=== PATIENT | male | born 1950 | race Caucasian/White ===

== ENCOUNTER 2018-02-15 17:06 | Inpatient (IN) ==
--- NOTE | 2018-02-15 17:21 | ED ---
HPI General Chief complaint: Weakness Stated complaint: General Weakness Time Seen by Provider: 02/15/18 17:10 Source: patient Mode of arrival: ambulatory Limitations: no limitations History of Present Illness HPI Narrative: progressive LLE weakness which yesterday caused him to fall and hit the right forehead area on a mehran furniture,...per patient unable to support his weight on his LLE MD Complaint: Reports focal weakness Onset (ago): day(s) (2) Duration: progressively worsening Location: Reports LLE Migration: Reports none Severity: moderate (now unable to bear weight and ambulate) Relieving factors: none Exacerbating factors: none Associated symptoms: Reports denies other symptoms Related Data Home Medications Medication Instructions Recorded Confirmed aripiprazole 5 mg PO DAILY 01/28/18 02/15/18 duloxetine 60 mg PO DAILY 01/28/18 02/15/18 fenofibrate nanocrystallized 48 mg PO DAILY 01/28/18 02/15/18 finasteride 5 mg PO DAILY 01/28/18 02/15/18 montelukast 10 mg PO QPM 01/28/18 02/15/18 nebivolol [Bystolic] 10 mg PO DAILY 01/28/18 02/15/18 omeprazole 20 mg PO DAILY 01/28/18 02/15/18 ramipril 10 mg PO DAILY 01/28/18 02/15/18 tamsulosin 0.4 mg PO DAILY 01/28/18 02/15/18 Previous Rx's Medication Instructions Recorded amlodipine [Norvasc] 5 mg PO DAILY #30 tab 02/18/18 apixaban [Eliquis] 5 mg PO BID #60 tab 02/18/18 atorvastatin [Lipitor] 10 mg PO DAILY #30 tab 02/18/18 Allergies Allergy/AdvReac Type Severity Reaction Status Date / Time penicillin G Allergy Severe Hives Verified 02/15/18 22:43 Review of Systems ROS: all other systems reviewed are negative PMFSH History History Provided By: Patient Medical History Medical History Decreased renal function (Acute) Depression (Acute) Elevated cholesterol (Acute) GERD (gastroesophageal reflux disease) (Acute) Hydronephrosis (Acute) Hypertension (Acute) Surgical History Surgical History History of prostate surgery (Acute) Hx of transurethral resection of prostate (Acute) Social History Social History Substance History: No History of Abuse Second Hand Smoke Exposure: Yes Smoking Status: Current every day smoker Tobacco Type: Cigarettes How Often Do You Have a Drink Containing Alcohol: 4 or more times a week ( Advised to limit alcohol intake to 2 drinks per week. ) Recent Travel in [facility] within the Last 8 Weeks: No Recent Out of Country Travel within the Last 8 Weeks: No Exam Narrative Exam Narrative: GENERAL: Well-nourished, well-developed patient in no apparent distress. SKIN: Warm and dry. HEAD: Atraumatic. Normocephalic. EYES: Pupils equal and round. No scleral icterus. No injection or drainage. ENT: No nasal bleeding or discharge. Mucous membranes pink and moist. NECK: Trachea midline. No JVD. CARDIOVASCULAR: Regular rate and rhythm. no rubs or gallops RESPIRATORY: No accessory muscle use. Clear to auscultation. Breath sounds equal bilaterally. GASTROINTESTINAL: Abdomen soft, non-tender, nondistended. No rebound or guarding MUSCULOSKELETAL: Extremities without clubbing, cyanosis, or edema. No obvious deformities. NEUROLOGICAL: Awake and alert. No obvious cranial nerve deficits. Motor grossly within normal limits. Five out of 5 muscle strength in the arms and legs on right, 4/5 on lle. Normal speech. PSYCHIATRIC: Appropriate mood and affect; insight and judgment normal. Course Initial Documented Vital Signs Pulse Rate 66 02/15/18 17:20 Respiratory Rate 20 02/15/18 17:20 Blood Pressure 165/92 H 02/15/18 17:20 Pulse Oximetry 95 02/15/18 17:20 Last Documented Vital Signs Temperature 98.7 F 02/18/18 08:00 Pulse Rate 58 L 02/18/18 08:00 Respiratory Rate 16 02/18/18 08:00 Blood Pressure 155/77 H 02/18/18 14:35 Pulse Oximetry 98 02/18/18 08:00 Medical Decision Making MDM Narrative Medical decision making narrative: CBC shows no leukocytosis no anemia no left shift Total CPK 333 CK-MB and troponin negative as well as beta natruretic peptide within normal limits TSH screening normal Electrolytes and normal liver functions Creatinine 1.48, gfr 47 renal insufficiency based on review his chronic with a September 2002 creatinine of 2.1, October 2002 1.8 patient needs further evaluation r/o cva to cause his LLE weakness.... Medical Screen Exam Complete: Yes Emergency Medical Condition: Yes Differential Diagnosis Differential Diagnosis: TIA versus CVA versus intracranial hemorrhage versus electrolyte abnormalities Medical Records Medical records reviewed: Yes I reviewed the patient's medical records. Lab Data Result diagrams: 02/16/18 05:10 02/16/18 05:10 Lab Results 02/15/18 02/15/18 02/15/18 Range/Units 17:27 17:27 17:27 WBC 9.3 (4.0-11.0) th/mm3 RBC 4.83 (4.50-5.90) mil/mm3 Hgb 16.0 (13.0-17.0) gm/dL Hct 44.3 (39.0-51.0) % MCV 91.7 (80.0-100.0) fL MCH 33.2 (27.0-34.0) pg MCHC 36.2 H (32.0-36.0) % RDW 12.4 (11.6-17.2) % Plt Count 227 (150-450) th/mm3 MPV 8.4 (7.0-11.0) fL Prelim Diff (Auto) Slide review pending Neut % (Auto) 65.3 (16.0-70.0) % Lymph % (Auto) 21.9 (9.0-44.0) % [place] % (Auto) 9.7 H (0.0-8.0) % Eos % (Auto) 2.3 (0.0-4.0) % Baso % (Auto) 0.8 (0.0-2.0) % Neut # (Auto) 6.1 (1.8-7.7) th/mm3 Lymph # (Auto) 2.0 (1.0-4.8) th/mm3 [place] # (Auto) 0.9 (0.0-0.9) th/mm3 Eos # (Auto) 0.2 (0.0-0.4) th/mm3 Baso # (Auto) 0.1 (0.0-0.2) th/mm3 WBC Differential . Diff Scan Auto diff confirmed Differential Comment . Sodium 140 (136-145) meq/L Potassium (3.5-5.1) meq/L Chloride 105 (98-107) meq/L Carbon Dioxide 25.7 (21.0-32.0) meq/L Anion Gap 9 (5-15) meq/L BUN 19 H (7-18) mg/dL Creatinine 1.48 H (0.60-1.30) mg/dL Estimated GFR 47 L (>89) mL/min Random Glucose 105 (74-106) mg/dL Hemoglobin A1c (4.3-6.0) % Calcium 8.2 L (8.5-10.1) mg/dL Total Bilirubin 0.3 (0.2-1.0) mg/dL AST 36 (15-37) U/L ALT 47 (12-78) U/L Alkaline Phosphatase 70 (45-117) U/L Total Creatine Kinase 333 H (39-308) U/L CK-MB (CK-2) 2.6 (0.5-3.6) ng/mL CK-MB (CK-2) % 0.8 (0.0-4.0) % Troponin I Less than 0.02 L (0.02-0.05) ng/mL B-Natriuretic Peptide 12 (0-100) pg/mL Total Protein 7.1 (6.4-8.2) g/dL Albumin 3.6 (3.4-5.0) g/dL Triglycerides (42-150) mg/dL Cholesterol (120-200) mg/dL LDL Cholesterol, Calc (0-99) mg/dL HDL Cholesterol (40.0-60.0) mg/dL Cholesterol/HDL Ratio Ratio TSH 2.210 (0.358-3.740) uIU/mL Urine Color (Yellw/Straw) Urine Clarity (Clear) Urine pH (5.0-8.5) Ur Specific [place] (1.002-1.035) Urine Protein (Neg-Trace) mg/dL Urine Glucose (UA) (Negative) mg/dL Urine Ketones (Negative) mg/dL Urine Occult Blood (Negative) Urine Nitrate (Negative) Urine Bilirubin (Negative) Urine Urobilinogen (Less than 2) mg/dL Ur Leukocyte Esterase (Negative) Ur Squamous Epith Cells (0-5) /hpf Urine Mucus (Occasional) /lpf Micro UA Comment Ur Microscopic Review Urine Culture Comments 02/15/18 02/16/18 02/16/18 Range/Units 21:45 05:10 05:10 WBC 7.8 (4.0-11.0) th/mm3 RBC 4.77 (4.50-5.90) mil/mm3 Hgb 15.5 (13.0-17.0) gm/dL Hct 43.4 (39.0-51.0) % MCV 91.2 (80.0-100.0) fL MCH 32.6 (27.0-34.0) pg MCHC 35.7 (32.0-36.0) % RDW 12.4 (11.6-17.2) % Plt Count 196 (150-450) th/mm3 MPV 8.7 (7.0-11.0) fL Prelim Diff (Auto) Neut % (Auto) 62.5 (16.0-70.0) % Lymph % (Auto) 23.4 (9.0-44.0) % [place] % (Auto) 9.2 H (0.0-8.0) % Eos % (Auto) 4.0 (0.0-4.0) % Baso % (Auto) 0.9 (0.0-2.0) % Neut # (Auto) 4.9 (1.8-7.7) th/mm3 Lymph # (Auto) 1.8 (1.0-4.8) th/mm3 [place] # (Auto) 0.7 (0.0-0.9) th/mm3 Eos # (Auto) 0.3 (0.0-0.4) th/mm3 Baso # (Auto) 0.1 (0.0-0.2) th/mm3 WBC Differential . Diff Scan Differential Comment Auto diff final Sodium 142 (136-145) meq/L Potassium 4.0 (3.5-5.1) meq/L Chloride 105 (98-107) meq/L Carbon Dioxide 26.8 (21.0-32.0) meq/L Anion Gap 10 (5-15) meq/L BUN 16 (7-18) mg/dL Creatinine 1.33 H (0.60-1.30) mg/dL Estimated GFR 53 L (>89) mL/min Random Glucose 90 (74-106) mg/dL Hemoglobin A1c (4.3-6.0) % Calcium 8.6 (8.5-10.1) mg/dL Total Bilirubin (0.2-1.0) mg/dL AST (15-37) U/L ALT (12-78) U/L Alkaline Phosphatase (45-117) U/L Total Creatine Kinase (39-308) U/L CK-MB (CK-2) (0.5-3.6) ng/mL CK-MB (CK-2) % (0.0-4.0) % Troponin I (0.02-0.05) ng/mL B-Natriuretic Peptide (0-100) pg/mL Total Protein (6.4-8.2) g/dL Albumin (3.4-5.0) g/dL Triglycerides 650 H (42-150) mg/dL Cholesterol 217 H (120-200) mg/dL LDL Cholesterol, Calc (0-99) mg/dL HDL Cholesterol 26.9 L (40.0-60.0) mg/dL Cholesterol/HDL Ratio 8.06 Ratio TSH (0.358-3.740) uIU/mL Urine Color Yellow (Yellw/Straw) Urine Clarity Clear (Clear) Urine pH 6.0 (5.0-8.5) Ur Specific [place] 1.008 (1.002-1.035) Urine Protein Negative (Neg-Trace) mg/dL Urine Glucose (UA) Negative (Negative) mg/dL Urine Ketones Negative (Negative) mg/dL Urine Occult Blood Negative (Negative) Urine Nitrate Negative (Negative) Urine Bilirubin Negative (Negative) Urine Urobilinogen Less than 2 (Less than 2) mg/dL Ur Leukocyte Esterase Negative (Negative) Ur Squamous Epith Cells <1 (0-5) /hpf Urine Mucus Few H (Occasional) /lpf Micro UA Comment Culture not ind Ur Microscopic Review Not Reportable Urine Culture Comments Culture not ind 02/16/18 Range/Units 05:10 WBC (4.0-11.0) th/mm3 RBC (4.50-5.90) mil/mm3 Hgb (13.0-17.0) gm/dL Hct (39.0-51.0) % MCV (80.0-100.0) fL MCH (27.0-34.0) pg MCHC (32.0-36.0) % RDW (11.6-17.2) % Plt Count (150-450) th/mm3 MPV (7.0-11.0) fL Prelim Diff (Auto) Neut % (Auto) (16.0-70.0) % Lymph % (Auto) (9.0-44.0) % [place] % (Auto) (0.0-8.0) % Eos % (Auto) (0.0-4.0) % Baso % (Auto) (0.0-2.0) % Neut # (Auto) (1.8-7.7) th/mm3 Lymph # (Auto) (1.0-4.8) th/mm3 [place] # (Auto) (0.0-0.9) th/mm3 Eos # (Auto) (0.0-0.4) th/mm3 Baso # (Auto) (0.0-0.2) th/mm3 WBC Differential Diff Scan Differential Comment Sodium (136-145) meq/L Potassium (3.5-5.1) meq/L Chloride (98-107) meq/L Carbon Dioxide (21.0-32.0) meq/L Anion Gap (5-15) meq/L BUN (7-18) mg/dL Creatinine (0.60-1.30) mg/dL Estimated GFR (>89) mL/min Random Glucose (74-106) mg/dL Hemoglobin A1c 5.5 (4.3-6.0) % Calcium (8.5-10.1) mg/dL Total Bilirubin (0.2-1.0) mg/dL AST (15-37) U/L ALT (12-78) U/L Alkaline Phosphatase (45-117) U/L Total Creatine Kinase (39-308) U/L CK-MB (CK-2) (0.5-3.6) ng/mL CK-MB (CK-2) % (0.0-4.0) % Troponin I (0.02-0.05) ng/mL B-Natriuretic Peptide (0-100) pg/mL Total Protein (6.4-8.2) g/dL Albumin (3.4-5.0) g/dL Triglycerides (42-150) mg/dL Cholesterol (120-200) mg/dL LDL Cholesterol, Calc (0-99) mg/dL HDL Cholesterol (40.0-60.0) mg/dL Cholesterol/HDL Ratio Ratio TSH (0.358-3.740) uIU/mL Urine Color (Yellw/Straw) Urine Clarity (Clear) Urine pH (5.0-8.5) Ur Specific [place] (1.002-1.035) Urine Protein (Neg-Trace) mg/dL Urine Glucose (UA) (Negative) mg/dL Urine Ketones (Negative) mg/dL Urine Occult Blood (Negative) Urine Nitrate (Negative) Urine Bilirubin (Negative) Urine Urobilinogen (Less than 2) mg/dL Ur Leukocyte Esterase (Negative) Ur Squamous Epith Cells (0-5) /hpf Urine Mucus (Occasional) /lpf Micro UA Comment Ur Microscopic Review Urine Culture Comments Imaging Data Radiologist's impression: Head CT 02/15/18 17:17 CONCLUSION: 1. No acute abnormality is seen. 2. Suspected small vessel ischemic change in the white matter. . Carotid Doppler Study 02/16/18 00:00 CONCLUSION: 1. No hemodynamically significant stenosis in either carotid artery. 2. Nonvisualization right vertebral artery. 3. Head MRI 02/16/18 00:00 CONCLUSION: 1. Areas of restricted diffusion within the right medial temporal lobe, right basal ganglia, right parietal lobe and left frontal lobe consistent with acute/ subacute punctate infarcts. 2. No midline shift or mass effect. Head MRA 02/16/18 07:03 CONCLUSION: 1. Negative MRA Cow ([place]) non contrast. Discharge Plan Discharge Disposition Patient Disposition: 30 Still Patient Discharge Condition Condition: Stable Discharge Order Discharge Orders: Discharge Order (Routine); Ordered 02/18/18 Ordered By: Taylor Burger Cardiology Clear for Discharge (Routine); Ordered 02/18/18 Ordered By: Cedric Tong Discharge Details Diagnosis: Weakness Physicians Team ED Provider: Emmett Laughlin Primary Care Provider: Anamaria Guerra Attending Provider: Suni Mack Other Providers: Fady Dimas ; Sherin Valdez ; Cedric Tong Status ED Status: Left Department Discharge Information Discharge Date/Time: 02/15/18 22:31
[2018-02-15 17:44] LABS: Baso # (Auto) 0.1 th/mm3 (0.0-0.2); Baso % (Auto) 0.8 % (0.0-2.0); Eos # (Auto) 0.2 th/mm3 (0.0-0.4); Eos % (Auto) 2.3 % (0.0-4.0); Hematocrit 44.3 % (39.0-51.0); Lymph % (Auto) 21.9 % (9.0-44.0); Mean Corpuscular HGB Conc 36.2 % (32.0-36.0); Mean Corpuscular Hemoglobin 33.2 pg (27.0-34.0); Mean Corpuscular Volume 91.7 fL (80.0-100.0); Mean Platelet Volume 8.4 fL (7.0-11.0); Mono # (Auto) 0.9 th/mm3 (0.0-0.9); Mono % (Auto) 9.7 % (0.0-8.0); Neut # (Auto) 6.1 th/mm3 (1.8-7.7); Neut % (Auto) 65.3 % (16.0-70.0); Platelet Count 227 th/mm3 (150-450); Red Blood Count 4.83 mil/mm3 (4.50-5.90); Red Cell Distribution Width 12.4 % (11.6-17.2); White Blood Count 9.3 th/mm3 (4.0-11.0)
[2018-02-15 18:06] LABS: Alanine Aminotransferase 47 U/L (12-78); Albumin 3.6 g/dL (3.4-5.0); Anion Gap 9 meq/L (5-15); Aspartate Aminotransferase 36 U/L (15-37); Blood Urea Nitrogen 19 mg/dL (7-18); Calcium 8.2 mg/dL (8.5-10.1); Carbon Dioxide 25.7 meq/L (21.0-32.0); Chloride 105 meq/L (98-107); Glomerular Filtration Rate 47 mL/min (>89); Glucose,Random 105 mg/dL (74-106); Sodium 140 meq/L (136-145)
[2018-02-15 18:12] LABS: Alkaline Phosphatase 70 U/L (45-117); Creatine Kinase 333 U/L (39-308); Total Protein 7.1 g/dL (6.4-8.2)
--- NOTE | 2018-02-15 18:17 | CT ---
EXAM DATE: 02/15/2018 5:29 PM EDT AGE/SEX: 67 years / Male INDICATIONS: Left leg weakness trouble standing falls CLINICAL DATA: This is the patient's initial encounter. Patient reports that signs and symptoms have been present for 1 day and indicates a pain score of 1/10. MEDICAL/SURGICAL HISTORY: Transient ischemic attack. Decrease renal function . Prostate surgery RADIATION DOSE: 56.35 CTDI (mGy) COMPARISON: No prior exams available for comparison. TECHNIQUE: CT of the head without contrast. Using automated exposure control and adjustment of the mA and/or kV according to patient size, radiation dose was kept as low as reasonably achievable to ob tain optimal diagnostic quality images. DICOM format image data is available electronically for revi ew and comparison. FINDINGS: Cerebrum: The ventricles are normal for age. No evidence of midline shift, mass lesion, hemorrhage or acute infarction. There is decreased density in the cerebral white matter. There is a possible ol d small lacunar infarct at the posterior right basal ganglia. No extraaxial fluid collections are see n. Posterior Fossa: The cerebellum and brainstem are intact. The 4th ventricle is midline. The cerebe llopontine angle is unremarkable. Extracranial: The visualized portion of the orbits is intact. Skull: The calvaria is intact. No evidence of skull fracture. CONCLUSION: 1. No acute abnormality is seen. 2. Suspected small vessel ischemic change in the white matter. . Electronically signed by: Ck Harvey MD 02/15/2018 6:16 PM EDT
[2018-02-15 18:38] LABS: CKMB Percent 0.8 % (0.0-4.0); Creatine Kinase MB 2.6 ng/mL (0.5-3.6)
[2018-02-15 22:10] LABS: Bilirubin,Urine Negative (Negative); Clarity,Urine Clear (Clear); Color,Urine Yellow (Yellw/Straw); Glucose,Urine (UA) Negative (Negative); Leukocyte Esterase,Urine Negative (Negative); Mucus,Urine Few /lpf (Occasional); Nitrite,Urine Negative (Negative); Specific Gravity,Urine 1.008 (1.002-1.035); Squamous Epithelial Cell,Urine <1 /hpf (0-5)
[2018-02-15] MEDS ORDERED: Aspirin 325 MG Tablet PO ONE (22:35)
--- NOTE | 2018-02-15 22:42 | P.HPIM ---
History of Present Illness Service: [facility] Primary Care Physician: Anamaria Guerra MD Chief Complaint: Left lower extremitiy weakness History of Present Illness: 67-year-old male with a history of hypertension, hyperlipidemia, GERD, BPH, and depression presented to the ED with complaints of left lower extremity weakness and unsteady gait. Patient states for the last month he has been having weakness in his lower extremities intermittently and today he tried to get up from the bed and almost nearly fell, and has been had increasing difficulty using his walker. He did have an outpatient MRI completed last week that showed multiple tiny areas of ischemia and is due to follow-up with a neurologist at the end of the month and scheduled for a carotid ultrasound next week, but due to increasing extremity weakness patient's felt she could not wait to be evaluated because he seems to be getting worse. Patient denies any numbness or tingling in lower extremities, no calf pain, no dizziness, no headache, no chest pain, no shortness of breath. Review of Systems All other systems reviewed negative except as stated in HPI [facility] - History History Provided By: Patient - Medical History Medical History: Medical History (Last Reviewed 02/15/18 @ 23:26 by DAISY Mace) Decreased renal function Depression Elevated cholesterol GERD (gastroesophageal reflux disease) Hydronephrosis Hypertension - Surgical History Surgical History: Surgical History (Last Reviewed 02/15/18 @ 23:26 by DAISY Mace) History of prostate surgery Hx of transurethral resection of prostate - Family History Family History: Family History (Last Reviewed 02/15/18 @ 23:26 by DAISY Mace) Other Hypertension - Social History I have reviewed the patient's Social History: Yes - Tobacco History Tobacco Use In Past 30 Days: Yes Smoking Status: Current every day smoker Tobacco Type: Cigarettes - Alcohol History How Often Do You Have a Drink Containing Alcohol: Unable to Obtain - Substance Use History Substance History: No History of Abuse - Immunization History Tetanus Immunization: Unsure Medications and Allergies Active Medications: Active Medications Aripiprazole (Abilify) 5 mg PO DAILY MAGALYS Aspirin (Aspirin) 325 mg PO ONCE ONE Stop: 02/15/18 22:36 Aspirin (Aspirin) 325 mg PO DAILY MAGALYS Duloxetine HCl (Cymbalta) 60 mg PO DAILY MAGALYS Enalaprilat (Vasotec Inj) 1.25 mg IV.PUSH Q4H PRN PRN Reason: For SBP > 220 or DBP > 120 Fenofibrate (Tricor) 48 mg PO DAILY MAGALYS Finasteride (Proscar) 5 mg PO DAILY MAGAL[facility] Montelukast Sodium (Singulair) 10 mg PO QPM MAGAL[facility] Nebivolol (Bystolic) 10 mg PO DAILY [facility] Non-Formulary Medication (Omeprazole [Omeprazole]) 20 mg PO DAILY [facility] Non-Formulary Medication (Ramipril [Ramipril]) 10 mg PO DAILY [facility] Ondansetron HCl (Zofran Inj) 4 mg IV.PUSH Q6H PRN PRN Reason: NAUSEA OR VOMITING Sodium Chloride (Ns Flush) 2 ml IV.FLUSH PRN PRN PRN Reason: FLUSH AFTER USING IV ACCESS Tamsulosin HCl (Flomax) 0.4 mg PO DAILY MAGALYS Allergies Allergy/AdvReac Type Severity Reaction Status Date / Time penicillin G Allergy Severe Hives Verified 02/15/18 22:43 Home Medications Medication Instructions Recorded Confirmed Type aripiprazole 5 mg PO DAILY 01/28/18 02/15/18 History duloxetine 60 mg PO DAILY 01/28/18 02/15/18 History fenofibrate nanocrystallized 48 mg PO DAILY 01/28/18 02/15/18 History finasteride 5 mg PO DAILY 01/28/18 02/15/18 History montelukast 10 mg PO QPM 01/28/18 02/15/18 History nebivolol [Bystolic] 10 mg PO DAILY 01/28/18 02/15/18 History omeprazole 20 mg PO DAILY 01/28/18 02/15/18 History ramipril 10 mg PO DAILY 01/28/18 02/15/18 History tamsulosin 0.4 mg PO DAILY 01/28/18 02/15/18 History Exam Vital signs: Vital Signs 02/15/18 17:20 02/15/18 17:36 02/15/18 18:54 Pulse Rate 66 69 76 Respiratory Rate 20 18 Blood Pressure 165/92 H 165/90 H Pulse Oximetry 95 93 L Intake & Output 02/15/18 02/15/18 02/16/18 06:59 18:59 06:59 Weight 97.069 kg Narrative: GENERAL: This is a well-nourished, well-developed patient, in no apparent distress. SKIN: Warm, dry, intact, no ecchymosis or open lesions EYES: Pupils equal round and reactive, no scleral edema or drainage CARDIOVASCULAR: Regular rate and rhythm without murmurs, gallops, or rubs. RESPIRATORY: Clear to auscultation. Breath sounds equal bilaterally. No wheezes , rales, or rhonchi. GASTROINTESTINAL: Abdomen soft, non-tender, nondistended. Normal active bowel sounds MUSCULOSKELETAL: Extremities without clubbing, cyanosis, or edema. NEURO: Alert & Oriented x4 to person, place, time, situation. Moves all ext x4 , left lower extremity weaker than right, no lower extremity drift no tongue deviation, no facial droop Results - Labs CBC & Chem 7: 02/15/18 17:27 02/15/18 17:27 Labs: Short CBC 02/15/18 Range/Units 17:27 WBC 9.3 (4.0-11.0) th/mm3 Hgb 16.0 (13.0-17.0) gm/dL Hct 44.3 (39.0-51.0) % Plt Count 227 (150-450) th/mm3 BMP 02/15/18 17:27 Sodium 140 Potassium Chloride 105 Carbon Dioxide 25.7 BUN 19 H Creatinine 1.48 H Calcium 8.2 L Cardiac Enzymes 02/15/18 Range/Units 17:27 Total Creatine Kinase 333 H (39-308) U/L CK-MB (CK-2) 2.6 (0.5-3.6) ng/mL Troponin I Less than 0.02 L (0.02-0.05) ng/mL Liver Function 02/15/18 Range/Units 17:27 Total Bilirubin 0.3 (0.2-1.0) mg/dL AST 36 (15-37) U/L ALT 47 (12-78) U/L Alkaline Phosphatase 70 (45-117) U/L Albumin 3.6 (3.4-5.0) g/dL Urine 02/15/18 Range/Units 21:45 Urine Color Yellow (Yellw/Straw) Urine Clarity Clear (Clear) Urine pH 6.0 (5.0-8.5) Ur Specific [place] 1.008 (1.002-1.035) Urine Protein Negative (Neg-Trace) mg/dL Urine Glucose (UA) Negative (Negative) mg/dL - Imaging Impressions Head CT 02/15/18 17:17 CONCLUSION: 1. No acute abnormality is seen. 2. Suspected small vessel ischemic change in the white matter. . Caprini VTE Risk Assessment Caprini VTE Risk Assessment: Moderate/High Risk (score >= 2) Caprini Risk Assessment Model: Point Value = 1 Point Value = 2 Point Value = 3 Point Value = 5 Age 41-60 Minor surgery BMI > 25 kg/m2 Swollen legs Varicose veins or History of unexplained or recurrent spontaneous Oral contraceptives or hormone replacement Sepsis (< 1 month) Serious lung disease, including pneumonia (< 1 month) Abnormal pulmonary function Acute myocardial infarction Congestive heart failure (< 1 month) History of inflammatory bowel disease Medical patient at bed rest Age 61-74 Arthroscopic surgery Major open surgery (> 45 min) Laparoscopic surgery (> 45 min) Malignancy Confined to bed (> 72 hours) Immobilizing plaster cast Central venous access Age >= 75 History of VTE Family history of VTE Factor V Leiden Prothrombin [id number] Lupus anticoagulant Anticardiolipin antibodies Elevated serum homocysteine Heparin-induced thrombocytopenia Other congenital or acquired thrombophilia Stroke (< 1 month) Elective arthroplasty Hip, pelvis, or leg fracture Acute spinal cord injury (< 1 month) Prophylaxis Regimen: Total Risk Factor Score Risk Level Prophylaxis Regimen 0-1 Low Early ambulation 2 Moderate Order ONE of the following: *Sequential Compression Device (SCD) *Heparin 5000 units SQ BID 3-4 Higher Order ONE of the following medications: *Heparin 5000 units SQ TID *Enoxaparin/Lovenox 40 mg SQ daily (WT < 150 kg, CrCl > 30 mL/min) *Enoxaparin/Lovenox 30 mg SQ daily (WT < 150 kg, CrCl > 10-29 mL/min) *Enoxaparin/Lovenox 30 mg SQ BID (WT < 150 kg, CrCl > 30 mL/min) AND/OR *Sequential Compression Device (SCD) 5 or more Highest Order ONE of the following medications: *Heparin 5000 units SQ TID (Preferred with Epidurals) *Enoxaparin/Lovenox 40 mg SQ daily (WT < 150 kg, CrCl > 30 mL/min) *Enoxaparin/Lovenox 30 mg SQ daily (WT < 150 kg, CrCl > 10-29 mL/min) *Enoxaparin/Lovenox 30 mg SQ BID (WT < 150 kg, CrCl > 30 mL/min) AND *Sequential Compression Device (SCD) Assessment and Plan - Plan 67-year-old male with a history of hypertension, hyperlipidemia, GERD, BPH, and depression presented to the ED with complaints of left lower extremity weakness and unsteady gait. Left lower extremity weakness, likely related to TIA, questionable CVA Head CT reviewed and shows no acute abnormalities, suspected small vessel ischemic changes Patient states outpatient MRI showed multiple tiny ischemic strokes Repeat MRI/MRA Carotid ultrasound and 2D echo ordered Consult neurology for evaluation Aspirin 325 mg p.o. daily PT/OT Hypertension, chronic Resume home medications, monitor vitals Hyperlipidemia, chronic Lipid panel ordered Resume home medications Depression, chronic Resume home medications DVT prophylaxis: SCDs Discussed Condition With: Patient, patient's and RN
[2018-02-16 06:21] LABS: Baso # (Auto) 0.1 th/mm3 (0.0-0.2); Baso % (Auto) 0.9 % (0.0-2.0); Eos # (Auto) 0.3 th/mm3 (0.0-0.4); Hematocrit 43.4 % (39.0-51.0); Hemoglobin 15.5 gm/dL (13.0-17.0); Lymph # (Auto) 1.8 th/mm3 (1.0-4.8); Lymph % (Auto) 23.4 % (9.0-44.0); Mean Corpuscular HGB Conc 35.7 % (32.0-36.0); Mean Corpuscular Hemoglobin 32.6 pg (27.0-34.0); Mean Corpuscular Volume 91.2 fL (80.0-100.0); Mean Platelet Volume 8.7 fL (7.0-11.0); Mono # (Auto) 0.7 th/mm3 (0.0-0.9); Mono % (Auto) 9.2 % (0.0-8.0); Neut # (Auto) 4.9 th/mm3 (1.8-7.7); Neut % (Auto) 62.5 % (16.0-70.0); Platelet Count 196 th/mm3 (150-450); Red Blood Count 4.77 mil/mm3 (4.50-5.90); Red Cell Distribution Width 12.4 % (11.6-17.2); White Blood Count 7.8 th/mm3 (4.0-11.0)
[2018-02-16 06:54] LABS: Calcium 8.6 mg/dL (8.5-10.1); Carbon Dioxide 26.8 meq/L (21.0-32.0)
[2018-02-16 06:55] LABS: Chol/HDL Ratio 8.06 Ratio; HDL Cholesterol 26.9 mg/dL (40.0-60.0)
[2018-02-16] MEDS ORDERED: Aspirin 325 MG Tablet PO SCH (09:00)
--- NOTE | 2018-02-16 09:26 | MR ---
EXAM DATE: 02/16/2018 8:52 AM EDT AGE/SEX: 67 years / Male INDICATIONS: Left sided weakness. CVA. CLINICAL DATA: This is the patient's subsequent encounter. Patient reports that signs and symptoms h ave been present for 2 days and indicates a pain score of 0/10. MEDICAL/SURGICAL HISTORY: Hypertension. . TURP. COMPARISON: [facility] [place], MR HEAD W/O CONTRAST, 02/16/2018. . TECHNIQUE: 3D [id number] MRA was performed. Source images, multiplanar STS MIP, and 3D volum e MIP reconstructions were reviewed. FINDINGS: There is excellent visualization of the major intracranial arteries out to the second-order branch ve ssels. Variant anatomy seen with persistent circulation noted bilaterally. This results in a r elatively small caliber basilar artery. There is no evidence for aneurysm, vessel truncation or steno sis, and no evidence for vascular malformation. CONCLUSION: 1. Negative MRA Cow ([place] [facility] [place]) non contrast. Electronically signed by: Jair Dee MD 02/16/2018 9:25 AM EDT
--- NOTE | 2018-02-16 09:29 | MR ---
EXAM DATE: 02/16/2018 8:52 AM EDT AGE/SEX: 67 years / Male INDICATIONS: Left sided weakness. CVA. CLINICAL DATA: This is the patient's subsequent encounter. Patient reports that signs and symptoms h ave been present for 2 days and indicates a pain score of 0/10. MEDICAL/SURGICAL HISTORY: Hypertension. . TURP. COMPARISON: POI, MR BRAIN W/O CONTRAST, 02/11/2018. . TECHNIQUE: Multiplanar, multisequence examination of the brain was performed without contrast. FINDINGS: Cerebrum: Scattered foci of bright T2 signal abnormalities are seen bilaterally including the right basal ganglia, right parietal lobe, left anterior frontal lobe and right medial temporal lobe.. The v entricles are normal for age. No evidence of midline shift, mass lesion or hemorrhage . No extraaxi al fluid collections are seen. The pituitary gland and suprasellar cistern are normal in configurati on. White Matter: Scattered foci of bright T2 signal abnormalities are seen in the white matter. Posterior Fossa: The cerebellum and brainstem are intact. The 4th ventricle is midline. The cerebel lopontine angle is unremarkable. The cerebellar tonsils are normal in position. Diffusion Imaging: No focal areas of restricted diffusion are seen. No evidence of acute infarction . Extracranial: The visualized portions of the orbits and paranasal sinuses are unremarkable. CONCLUSION: 1. Areas of restricted diffusion within the right medial temporal lobe, right basal ganglia, right p arietal lobe and left frontal lobe consistent with acute/subacute punctate infarcts. 2. No midline shift or mass effect. Electronically signed by: Bora Owen MD 02/16/2018 9:28 AM EDT
--- NOTE | 2018-02-16 10:08 | ECG ---
Date Performed: 02/15/2018 Time Performed: 18:26:33 PTAGE: 67 years EKG: Sinus rhythm NONSPECIFIC T-WAVE ABNORMALITY BORDERLINE ECG INTERPRETATION BASED ON A DEFAULT AGE OF 40 YEARS NO PREVIOUS TRACING DOCTOR: Iglesia Jose Interpretating Date/Time 02/16/2018 10:06:39
--- NOTE | 2018-02-16 10:08 | US ---
EXAM DATE: 02/16/2018 12:00 AM EDT AGE/SEX: 67 years / Male INDICATIONS: Weakness and unsteady gait. CLINICAL DATA: This is the patient's initial encounter. Patient reports that signs and symptoms have been present for 1 day and indicates a pain score of 0/10. MEDICAL/SURGICAL HISTORY: Gastroesophageal reflux disease. Hypertension. Hypercholesterolemia . Decreased renal function. Hydronephrosis. . Prostate surgery. COMPARISON: No prior exams available for comparison. VELOCITY PARAMETERS: ICA/CCA Ratio: Right 0.7 , Left 0.9 ICA: Right 118 cm/sec, Left 90 cm/sec CCA: Right 81 cm/sec, Left 78 cm/sec ECA: Right 109 cm/sec, Left 106 cm/sec Vertebral: Right .not visualized. cm/sec absent, Left 38 cm/sec antegrade FINDINGS: Right Carotid: No significant plaque is visualized.The waveforms are within normal limits. Left Carotid: No significant plaque is visualized. The waveforms are within normal limits. Other: None. CONCLUSION: 1. No hemodynamically significant stenosis in either carotid artery. 2. Nonvisualization right vertebral artery. 3. Electronically signed by: Bora Owen MD 02/16/2018 10:07 AM EDT
[2018-02-16] MEDS: Ramipril 5 MG Capsule PO SCH (10:14)
[2018-02-16] MEDS: Finasteride 5 MG Tablet PO SCH (10:14)
[2018-02-16] MEDS: Pantoprazole Sodium 20 MG DR Tablet PO SCH (10:14)
[2018-02-16] MEDS: Duloxetine 60 MG DR Capsule PO SCH (10:14)
[2018-02-16] MEDS: Fenofibrate 48 MG Tablet PO SCH (10:15)
[2018-02-16] MEDS: ARIPiprazole 5 MG Tablet PO SCH (10:15)
--- NOTE | 2018-02-16 14:47 | P.PN ---
Subjective Interval history: Patient is seen lying in bed finishing breakfast. His is at bedside. Patient tells me that he has had no new episodes of weakness. No dizziness or syncope. No chest pain or shortness of breath. No nausea vomiting or diarrhea. He continues to have weakness in his left foot however he feels it is not that significant. Reports that the foot "flops"; patient does not appear to perceive the weakness as being as bad as it is and thinks that he is able to walk without assistance. Physical Exam Vital signs: Vital Signs 02/15/18 17:20 02/15/18 17:36 02/15/18 18:54 Temperature Pulse Rate 66 69 76 Respiratory Rate 20 18 Blood Pressure 165/92 H 165/90 H Pulse Oximetry 95 93 L 02/16/18 00:00 02/16/18 01:09 02/16/18 04:15 Temperature 96.9 F L Pulse Rate 63 61 Respiratory Rate 18 Blood Pressure 160/72 H 172/85 H Pulse Oximetry 99 02/16/18 04:47 02/16/18 07:28 02/16/18 08:00 Temperature 97.8 F 97.7 F 98.6 F Pulse Rate 63 72 63 Respiratory Rate 18 18 18 Blood Pressure 174/81 H 198/99 H Pulse Oximetry 99 97 98 02/16/18 08:49 02/16/18 12:00 02/16/18 12:09 Temperature 98.7 F Pulse Rate 77 Respiratory Rate 18 Blood Pressure 174/94 H 198/102 H 180/96 H Pulse Oximetry 96 02/16/18 12:10 Temperature Pulse Rate Respiratory Rate Blood Pressure 178/102 H Pulse Oximetry Intake & Output 02/15/18 02/16/18 02/16/18 18:59 06:59 18:59 Intake Total 240 / 240 Balance 240 / 240 Weight 97.069 kg 97.069 kg Intake: Oral 240 / 240 Other: # Voids 1 Date of Last Bowel Movement 02/15/18 Weight On Admission 97.069 kg Narrative: GENERAL: This is a well-nourished, well-developed patient, in no apparent distress. SKIN: Warm, dry, intact, no ecchymosis or open lesions visible EYES: Pupils equal round and reactive, no scleral edema or drainage CARDIOVASCULAR: Regular rate and rhythm without murmurs, gallops, or rubs. RESPIRATORY: Clear to auscultation. Breath sounds equal bilaterally. No wheezes , rales, or rhonchi. GASTROINTESTINAL: Abdomen soft, non-tender, nondistended. Normal active bowel sounds MUSCULOSKELETAL: Extremities without clubbing, cyanosis, or edema. NEURO: Alert & Oriented x4 to person, place, time, situation. Moves all ext x4 , left lower extremity weaker than right, no lower extremity drift no tongue deviation, no facial droop Results - Labs CBC & Chem 7: 02/16/18 05:10 02/16/18 05:10 Laboratory Results - last 24 hr 02/15/18 02/15/18 02/15/18 17:27 17:27 17:27 WBC 9.3 RBC 4.83 Hgb 16.0 Hct 44.3 MCV 91.7 MCH 33.2 MCHC 36.2 H RDW 12.4 Plt Count 227 MPV 8.4 Prelim Diff (Auto) Slide review pending Neut % (Auto) 65.3 Lymph % (Auto) 21.9 Izard % (Auto) 9.7 H Eos % (Auto) 2.3 Baso % (Auto) 0.8 Neut # (Auto) 6.1 Lymph # (Auto) 2.0 [place] # (Auto) 0.9 Eos # (Auto) 0.2 Baso # (Auto) 0.1 WBC Differential . Diff Scan Auto diff confirmed Differential Comment . Sodium 140 Potassium Chloride 105 Carbon Dioxide 25.7 Anion Gap 9 BUN 19 H Creatinine 1.48 H Estimated GFR 47 L Random Glucose 105 Calcium 8.2 L Total Bilirubin 0.3 AST 36 ALT 47 Alkaline Phosphatase 70 Total Creatine Kinase 333 H CK-MB (CK-2) 2.6 CK-MB (CK-2) % 0.8 Troponin I Less than 0.02 L B-Natriuretic Peptide 12 Total Protein 7.1 Albumin 3.6 Triglycerides Cholesterol LDL Cholesterol, Calc HDL Cholesterol Cholesterol/HDL Ratio TSH 2.210 Urine Color Urine Clarity Urine pH Ur Specific [place] Urine Protein Urine Glucose (UA) Urine Ketones Urine Occult Blood Urine Nitrate Urine Bilirubin Urine Urobilinogen Ur Leukocyte Esterase Ur Squamous Epith Cells Urine Mucus Micro UA Comment Ur Microscopic Review Urine Culture Comments 02/15/18 02/16/18 02/16/18 21:45 05:10 05:10 WBC 7.8 RBC 4.77 Hgb 15.5 Hct 43.4 MCV 91.2 MCH 32.6 MCHC 35.7 RDW 12.4 Plt Count 196 MPV 8.7 Prelim Diff (Auto) Neut % (Auto) 62.5 Lymph % (Auto) 23.4 [place] % (Auto) 9.2 H Eos % (Auto) 4.0 Baso % (Auto) 0.9 Neut # (Auto) 4.9 Lymph # (Auto) 1.8 [place] # (Auto) 0.7 Eos # (Auto) 0.3 Baso # (Auto) 0.1 WBC Differential . Diff Scan Differential Comment Auto diff final Sodium 142 Potassium 4.0 Chloride 105 Carbon Dioxide 26.8 Anion Gap 10 BUN 16 Creatinine 1.33 H Estimated GFR 53 L Random Glucose 90 Calcium 8.6 Total Bilirubin AST ALT Alkaline Phosphatase Total Creatine Kinase CK-MB (CK-2) CK-MB (CK-2) % Troponin I B-Natriuretic Peptide Total Protein Albumin Triglycerides 650 H Cholesterol 217 H LDL Cholesterol, Calc HDL Cholesterol 26.9 L Cholesterol/HDL Ratio 8.06 TSH Urine Color Yellow Urine Clarity Clear Urine pH 6.0 Ur Specific [place] 1.008 Urine Protein Negative Urine Glucose (UA) Negative Urine Ketones Negative Urine Occult Blood Negative Urine Nitrate Negative Urine Bilirubin Negative Urine Urobilinogen Less than 2 Ur Leukocyte Esterase Negative Ur Squamous Epith Cells <1 Urine Mucus Few H Micro UA Comment Culture not ind Ur Microscopic Review Not Reportable Urine Culture Comments Culture not ind - Imaging Impressions Head CT 02/15/18 17:17 CONCLUSION: 1. No acute abnormality is seen. 2. Suspected small vessel ischemic change in the white matter. . Carotid Doppler Study 02/16/18 00:00 CONCLUSION: 1. No hemodynamically significant stenosis in either carotid artery. 2. Nonvisualization right vertebral artery. 3. Head MRI 02/16/18 00:00 CONCLUSION: 1. Areas of restricted diffusion within the right medial temporal lobe, right basal ganglia, right parietal lobe and left frontal lobe consistent with acute/ subacute punctate infarcts. 2. No midline shift or mass effect. Head MRA 02/16/18 07:03 CONCLUSION: 1. Negative MRA Cow ([place]) non contrast. Assessment and Plan - Plan 67-year-old male with a history of hypertension, hyperlipidemia, GERD, BPH, and depression presented to the ED with complaints of left lower extremity weakness and unsteady gait. Left lower extremity weakness, likely related to TIA, questionable CVA Head CT reviewed and shows no acute abnormalities, suspected small vessel ischemic changes Patient states outpatient MRI showed multiple tiny ischemic strokes Repeat MRI/MRA Carotid ultrasound and 2D echo ordered Consult neurology for evaluation Aspirin 325 mg p.o. daily PT/OT Hypertension, chronic Resume home medications, monitor vitals We will allow permissive hypertension until neuro evaluation complete. 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
[2018-02-16 16:58] LABS: Hemoglobin A1c 5.5 % (4.3-6.0)
--- NOTE | 2018-02-16 17:49 | MB ---
cc: Fady Dimas MD, PhD DATE: 02/16/2018 REASON FOR CONSULTATION: Stroke. HISTORY OF PRESENT ILLNESS: Mr. Bateman is a 67-year-old man who 3 weeks ago was doing some back-twisting exercises and suddenly developed difficulty walking with weakness in the left leg and unsteady gait. As an outpatient, he had an MRI of the brain, which revealed several strokes. He came to the ER for further evaluation. He has had no other history of stroke in the past. PAST MEDICAL HISTORY: Remarkable for GERD, hyperlipidemia, hypertension, BPH, depression, decreased renal function, prostate surgery, TURP. MEDICATIONS AT HOME: 1. Aspirin 81 mg daily. 2. Abilify. 3. Duloxetine. 4. Enalapril. 5. Fenofibrate. 6. Finasteride. 7. Montelukast. 8. Bystolic. NEUROLOGICAL EXAMINATION: Blood pressure is 174/94, pulse is 77, respirations 18, temperature 98.2 degrees. Higher cortical functions normal. Cranial nerves 2-12 are within normal limits. On motor exam, he has 5/5 strength in all major groups in both upper extremities. He has some decreased strength in the left leg distally. There is slightly diminished fine motor skills in the left arm with a drift. Reflexes are symmetric. IMAGING STUDIES: MRI of the brain shows restricted diffusion, right medial temporal lobe, right basal ganglia and right parietal lobe and left frontal lobe consistent with acute/subacute punctate infarctions. No hemorrhage is identified. Carotid ultrasound: No significant carotid stenosis identified. MRA brain is within normal limits. LABORATORY DATA: White count 9300, hemoglobin 16, hematocrit 44%, platelets 227,000. Sodium is 140, potassium 4, chloride 105, CO2 of 26, BUN is 19, creatinine 1.48, GFR is 47, glucose 105, calcium 8.2, AST 36, ALT 47. Triglycerides 650. Cholesterol 217, LDL pending. IMPRESSION: The patient has evidence of several strokes bilaterally, mainly on the right side, but also a small left frontal stroke, which raises the possibility of cardioembolic stroke. RECOMMENDATIONS: Continue monitoring cardiac telemetry, rule out atrial fibrillation. We will also check an echocardiogram. Recommend starting Lovenox. Consider long-term anticoagulation. He may need outpatient loop recorder to rule out atrial fibrillation. Fady Dimas MD, PhD EDUARDO/joanne , 05:29 PM , 05:35 PM
--- NOTE | 2018-02-16 19:03 | ECHRPT ---
Indication: CONCLUSIONS The left ventricular systolic function is normal with an estimated ejection fraction in the range of 60-65%. Mild concentric left ventricular hypertrophy. Doppler parameters are consistent with impaired left ventricular relaxtion (grade 1 diastolic dysfun ction). There is trace tricuspid valve regurgitation. BP: / HR: Rhythm: MEASUREMENTS (Male / Female) Normal Values Technical Quality:Fair 2D ECHO LV Diastolic Diameter PLAX 4.5 cm 4.2 - 5.9 / 3.9 - 5.3 cm LV Systolic Diameter PLAX 3.1 cm IVS Diastolic Thickness 1.4 cm 0.6 - 1.0 / 0.6 - 0.9 cm LVPW Diastolic Thickness 1.1 cm 0.6 - 1.0 / 0.6 - 0.9 cm LV Relative Wall Thickness 0.6 RV Internal Dim ED PLAX 3.1 cm LVOT Diameter 2.3 cm Aortic Root Diameter 3.2 cm LA Systolic Diameter LX 4.0 cm 3.0 - 4.0 / 2.7 - 3.8 cm DOPPLER AV Peak Velocity 144.5 cm/s AV Peak Gradient 8.4 mmHg AV Mean Gradient 3.5 mmHg AV Velocity Time Integral 30.0 cm LVOT Peak Velocity 104.0 cm/s LVOT Peak Gradient 4.3 mmHg LVOT Velocity Time Integral 24.1 cm AV Area Cont Eq vti 3.3 cm AV Area Cont Eq pk 3.0 cm Mitral E Point Velocity 57.8 cm/s Mitral A Point Velocity 90.3 cm/s Mitral E to A Ratio 0.6 LV E' Lateral Velocity 6.4 cm/s Mitral E to LV E' Lateral Ratio 9.0 LV E' Septal Velocity 5.2 cm/s Mitral E to LV E' Septal Ratio 11.2 PV Peak Velocity 113.0 cm/s PV Peak Gradient 5.1 mmHg FINDINGS LEFT VENTRICLE Normal left ventricular size. Mild concentric left ventricular hypertrophy. The left ventricular systolic function is normal with an estimated ejection fraction in the range of 60-65%. Doppler parameters are consistent with impaired left ventricular relaxtion (grade 1 diastolic dysfun ction). RIGHT VENTRICLE Normal right ventricular size and systolic function. LEFT ATRIUM The left atrial size is mildly dilated. RIGHT ATRIUM The right atrial size is normal. ATRIAL SEPTUM Normal atrial septal thickness without atrial level shunting by limited color doppler interrogation. AORTA The aortic root and proximal ascending aorta are normal in size on limited imaging. MITRAL VALVE Structurally normal mitral valve. No mitral valve stenosis or regurgitation. AORTIC VALVE Trileaflet aortic valve. No aortic valve stenosis or regurgitation. TRICUSPID VALVE Structurally normal tricuspid valve. There is trace tricuspid valve regurgitation. PULMONARY VALVE Trivial pulmonary valve regurgitation. The pulmonary valve is not well visualized. VESSELS The inferior vena cava is normal in size. PERICARDIUM No pericardial effusion. Pradeep Ceballos DO (Electronically Signed) Final Date:16 February 2018 19:03
[2018-02-16] MEDS: Montelukast 10 MG Tablet PO SCH (19:11)
[2018-02-16] MEDS: Enoxaparin Inj 100 MG/ML Syringe SQ SCH (20:31)
[2018-02-17] MEDS: Enoxaparin Inj 100 MG/ML Syringe SQ SCH ×2 (08:44→20:06)
[2018-02-17] MEDS: Pantoprazole Sodium 20 MG DR Tablet PO SCH (08:45)
[2018-02-17] MEDS: ARIPiprazole 5 MG Tablet PO SCH (08:45)
[2018-02-17] MEDS: Fenofibrate 48 MG Tablet PO SCH (08:45)
[2018-02-17] MEDS: Ramipril 5 MG Capsule PO SCH (08:46)
[2018-02-17] MEDS: Finasteride 5 MG Tablet PO SCH (08:46)
[2018-02-17] MEDS: Duloxetine 60 MG DR Capsule PO SCH (08:47)
--- NOTE | 2018-02-17 13:53 | P.PN ---
Subjective Interval history: Patient is seen lying in bed. His is present at bedside. He reports that he is doing much better and is now unable to walk without assistance. He wishes to return home and do outpatient physical therapy if possible. Patient denies any chest pain or shortness of breath. No dizziness or syncope. No palpitations. He denies any history of cardiac problems or dysrhythmias. Physical Exam Vital signs: Vital Signs 02/16/18 16:00 02/16/18 20:00 02/16/18 23:23 Temperature 98.4 F 98.2 F 97.9 F Pulse Rate 70 60 62 Respiratory Rate 18 20 20 Blood Pressure 191/102 H 181/85 H 183/91 H Pulse Oximetry 97 96 98 02/17/18 04:00 02/17/18 05:11 02/17/18 07:38 Temperature 97.7 F 98.2 F 98.9 F Pulse Rate 48 L 75 62 Respiratory Rate 17 19 18 Blood Pressure 194/95 H 126/66 198/97 H Pulse Oximetry 98 98 99 02/17/18 12:12 Temperature 97.9 F Pulse Rate 60 Respiratory Rate 20 Blood Pressure 181/86 H Pulse Oximetry 99 Intake & Output 02/16/18 02/17/18 02/17/18 18:59 06:59 18:59 Other: Date of Last Bowel Movement 02/15/18 02/15/18 02/15/18 Narrative: GENERAL: This is a well-nourished, well-developed patient, in no apparent distress. SKIN: Warm, dry, intact, no ecchymosis or open lesions visible EYES: Pupils equal round and reactive, no scleral edema or drainage CARDIOVASCULAR: Regular rate and rhythm without murmurs, gallops, or rubs. RESPIRATORY: Clear to auscultation. Breath sounds equal bilaterally. No wheezes , rales, or rhonchi. GASTROINTESTINAL: Abdomen soft, non-tender, nondistended. Normal active bowel sounds MUSCULOSKELETAL: Extremities without clubbing, cyanosis, or edema. NEURO: Alert & Oriented x4 to person, place, time, situation. Moves all ext x4 , left lower extremity weaker than right, no lower extremity drift no tongue deviation, no facial droop Results - Labs CBC & Chem 7: 02/16/18 05:10 02/16/18 05:10 Laboratory Results - last 24 hr 02/16/18 05:10 Hemoglobin A1c 5.5 Assessment and Plan - Plan 67-year-old male with a history of hypertension, hyperlipidemia, GERD, BPH, and depression presented to the ED with complaints of left lower extremity weakness and unsteady gait. Left lower extremity weakness, likely related to TIA, questionable CVA Head CT reviewed and shows no acute abnormalities, suspected small vessel ischemic changes Patient states outpatient MRI showed multiple tiny ischemic strokes Consult neurology for evaluation -neurology feels this is cardioembolic in nature Consult to cardiology -planned placement of loop recorder and BUDDY on 02/18. Stopped aspirin. Started Lovenox. Consider anticoagulation upon discharge PT/OT Hypertension, chronic Resume home medications, monitor vitals We will allow permissive hypertension until neuro evaluation complete. Hyperlipidemia, chronic Lipid panel ordered Resume home medications Depression, chronic Resume home medications DVT prophylaxis: SCDs Discussed Condition With: Patient, patient's and heliotherapist planning: Home with outpatient PT
--- NOTE | 2018-02-17 14:40 | P.CONCA ---
History of Present Illness Service: Cardiology Reason for Consult: CVA Primary Care Provider: Anamaria Guerra MD Chief Complaint: Left lower extremitiy weakness History of Present Illness: Pleasant 67-year-old male who was scheduled to see us as a new patient next week presented with left lower extremity weakness. Patient reports that symptoms initially began approximately 3 weeks ago after working out at the gym , he felt like his left foot just would not work. He reports going to his masseuse for a week, originally thought maybe he had messed up his back however symptoms did not improve. He ended up going to the ER in [place] on January 28. Patient reports that this past week on Wednesday left leg and left foot became more weak he had a hard time controlling his foot, reports he was needing assistance with walking. Prior to 3 weeks ago patient denies any significant past medical history, he works out at the gym regularly with no difficulty. He denies any chest pain shortness of breath dizziness or lightheadedness. He does have a history of hypertension and hyperlipidemia. MRI revealed Areas of restricted diffusion within the right medial temporal lobe, right basal ganglia, right parietal lobe and left frontal lobe consistent with acute/subacute punctate infarcts. Dr. Dimas is following patient. No known history of atrial fibrillation. Carotid ultrasound done during this admission, no evidence of significant stenosis. Telemetry does not reveal any atrial fibrillation. All options discussed in detail with patient and , we will plan to proceed with loop recorder placement and transesophageal echocardiogram tomorrow. Review of Systems Musculoskeletal: Reports abnormal walking, Reports muscle weakness, Reports numbness Neurologic: Reports localized weakness PMFSH - History History Provided By: Patient - Medical History Medical History: Medical History (Last Reviewed 02/17/18 @ 09:27 by Murray Burrell) Decreased renal function Depression Elevated cholesterol GERD (gastroesophageal reflux disease) Hydronephrosis Hypertension - Surgical History Surgical History: Surgical History (Last Reviewed 02/17/18 @ 09:27 by Murray Burrell) History of prostate surgery Hx of transurethral resection of prostate - Family History Family History: Family History (Last Reviewed 02/16/18 @ 06:54 by Felipa Mejia) Other Hypertension - Social History I have reviewed the patient's Social History: Yes - Tobacco History Second Hand Smoke Exposure: Yes Tobacco Use In Past 30 Days: Yes Smoking Status: Current every day smoker Tobacco Type: Cigarettes - Alcohol History How Often Do You Have a Drink Containing Alcohol: 4 or more times a week ( Advised to limit alcohol intake to 2 drinks per week.) - Substance Use History Substance History: No History of Abuse - Travel History Recent Travel in the [place] Within the Last 8 Weeks: No Recent Travel Out of the Country Within the Last 8 Weeks: No - Immunization History Tetanus Immunization: >5 Years Hx Influenza Vaccine This Season: Yes Medications and Allergies Allergies Allergy/AdvReac Type Severity Reaction Status Date / Time penicillin G Allergy Severe Hives Verified 02/15/18 22:43 Home Medications Medication Instructions Recorded Confirmed Type aripiprazole 5 mg PO DAILY 01/28/18 02/15/18 History duloxetine 60 mg PO DAILY 01/28/18 02/15/18 History fenofibrate nanocrystallized 48 mg PO DAILY 01/28/18 02/15/18 History finasteride 5 mg PO DAILY 01/28/18 02/15/18 History montelukast 10 mg PO QPM 01/28/18 02/15/18 History nebivolol [Bystolic] 10 mg PO DAILY 01/28/18 02/15/18 History omeprazole 20 mg PO DAILY 01/28/18 02/15/18 History ramipril 10 mg PO DAILY 01/28/18 02/15/18 History tamsulosin 0.4 mg PO DAILY 01/28/18 02/15/18 History Active Medications: Active Medications Aripiprazole (Abilify) 5 mg PO DAILY [facility] Last Admin: 02/17/18 08:45 Dose: 5 mg Atorvastatin Calcium (Lipitor) 10 mg PO DAILY [facility] Last Admin: 02/17/18 08:46 Dose: 10 mg Clonidine HCl (Catapres) 0.1 mg PO Q6H PRN PRN Reason: SBP>180, DBP>95 Duloxetine HCl (Cymbalta) 60 mg PO DAILY [facility] Last Admin: 02/17/18 08:47 Dose: 60 mg Enalaprilat (Vasotec Inj) 1.25 mg IV.PUSH Q4H PRN PRN Reason: For SBP > 220 or DBP > 120 Enoxaparin Sodium (Lovenox Inj) 90 mg SQ Q12HR [facility] Last Admin: 02/17/18 08:44 Dose: 90 mg Fenofibrate (Tricor) 48 mg PO DAILY [facility] Last Admin: 02/17/18 08:45 Dose: 48 mg Finasteride (Proscar) 5 mg PO DAILY [facility] Last Admin: 02/17/18 08:46 Dose: 5 mg Montelukast Sodium (Singulair) 10 mg PO QPM [facility] Last Admin: 02/16/18 19:11 Dose: 10 mg Nebivolol (Bystolic) 10 mg PO DAILY [facility] Last Admin: 02/17/18 08:45 Dose: 10 mg Ondansetron HCl (Zofran Inj) 4 mg IV.PUSH Q6H PRN PRN Reason: NAUSEA OR VOMITING Pantoprazole Sodium (Protonix) 20 mg PO DAILY [facility] Last Admin: 02/17/18 08:45 Dose: 20 mg Ramipril (Altace) 10 mg PO DAILY [facility] Last Admin: 02/17/18 08:46 Dose: 10 mg Sodium Chloride (Ns Flush) 2 ml IV.FLUSH PRN PRN PRN Reason: FLUSH AFTER USING IV ACCESS Tamsulosin HCl (Flomax) 0.4 mg PO DAILY [facility] Last Admin: 02/17/18 08:46 Dose: 0.4 mg Temazepam (Restoril) 7.5 mg PO HS PRN PRN Reason: INSOMNIA Last Admin: 02/16/18 22:53 Dose: 7.5 mg Exam Vital signs: Vital Signs 02/16/18 16:00 02/16/18 20:00 02/16/18 23:23 Temperature 98.4 F 98.2 F 97.9 F Pulse Rate 70 60 62 Respiratory Rate 18 20 20 Blood Pressure 191/102 H 181/85 H 183/91 H Pulse Oximetry 97 96 98 02/17/18 04:00 02/17/18 05:11 02/17/18 07:38 Temperature 97.7 F 98.2 F 98.9 F Pulse Rate 48 L 75 62 Respiratory Rate 17 19 18 Blood Pressure 194/95 H 126/66 198/97 H Pulse Oximetry 98 98 99 02/17/18 12:12 Temperature 97.9 F Pulse Rate 60 Respiratory Rate 20 Blood Pressure 181/86 H Pulse Oximetry 99 Intake & Output 02/16/18 02/17/18 02/17/18 18:59 06:59 18:59 Other: Date of Last Bowel Movement 02/15/18 02/15/18 02/15/18 - Constitutional no acute distress - Routine HEENT Exam Head: Present: normocephalic, atraumatic Eye: Present: PERRL, normal accommodation ENT: Present: mucous membranes moist - Routine Neck Exam Present: supple - Routine Respiratory Exam Present: CTA bilaterally - Routine Cardiovascular Exam Present: RRR - Routine Abdominal Exam Present: soft - Routine Skin Exam Present: intact - Routine Neurological Exam Present: alert, oriented X3 Results 02/16/18 05:10 02/16/18 05:10 Cardiac Enzymes 02/15/18 02/15/18 Range/Units 17:27 17:27 AST 36 (15-37) U/L CK-MB (CK-2) 2.6 (0.5-3.6) ng/mL Troponin I Less than 0.02 L (0.02-0.05) ng/mL B-Natriuretic Peptide 12 (0-100) pg/mL Coagulation 02/15/18 Range/Units 17:27 B-Natriuretic Peptide 12 (0-100) pg/mL Lipids 02/16/18 Range/Units 05:10 Triglycerides 650 H (42-150) mg/dL Cholesterol 217 H (120-200) mg/dL HDL Cholesterol 26.9 L (40.0-60.0) mg/dL Cholesterol/HDL Ratio 8.06 Ratio CBC 02/15/18 02/16/18 Range/Units 17:27 05:10 WBC 9.3 7.8 (4.0-11.0) th/mm3 RBC 4.83 4.77 (4.50-5.90) mil/mm3 Hgb 16.0 15.5 (13.0-17.0) gm/dL Hct 44.3 43.4 (39.0-51.0) % Plt Count 227 196 (150-450) th/mm3 Neut # (Auto) 6.1 4.9 (1.8-7.7) th/mm3 Lymph # (Auto) 2.0 1.8 (1.0-4.8) th/mm3 [place] # (Auto) 0.9 0.7 (0.0-0.9) th/mm3 Eos # (Auto) 0.2 0.3 (0.0-0.4) th/mm3 Baso # (Auto) 0.1 0.1 (0.0-0.2) th/mm3 Comprehensive Metabolic Panel 02/15/18 02/16/18 Range/Units 17:27 05:10 Sodium 140 142 (136-145) meq/L Potassium 4.0 (3.5-5.1) meq/L Chloride 105 105 (98-107) meq/L Carbon Dioxide 25.7 26.8 (21.0-32.0) meq/L BUN 19 H 16 (7-18) mg/dL Creatinine 1.48 H 1.33 H (0.60-1.30) mg/dL Calcium 8.2 L 8.6 (8.5-10.1) mg/dL AST 36 (15-37) U/L ALT 47 (12-78) U/L Alkaline Phosphatase 70 (45-117) U/L Total Protein 7.1 (6.4-8.2) g/dL Albumin 3.6 (3.4-5.0) g/dL Intake and Output 02/16/18 02/17/18 02/17/18 22:59 06:59 14:59 Other: Date of Last Bowel Movement 02/15/18 02/15/18 - Imaging and Cardiology Imaging: Impressions Head CT 02/15/18 17:17 CONCLUSION: 1. No acute abnormality is seen. 2. Suspected small vessel ischemic change in the white matter. . Carotid Doppler Study 02/16/18 00:00 CONCLUSION: 1. No hemodynamically significant stenosis in either carotid artery. 2. Nonvisualization right vertebral artery. 3. Head MRI 02/16/18 00:00 CONCLUSION: 1. Areas of restricted diffusion within the right medial temporal lobe, right basal ganglia, right parietal lobe and left frontal lobe consistent with acute/ subacute punctate infarcts. 2. No midline shift or mass effect. Head MRA 02/16/18 07:03 CONCLUSION: 1. Negative MRA [place] ([place] [facility] [place]) non contrast. Assessment and Plan - Plan Assessment CVA HTN Hyperlipidemia MRI results from 02/16/2018-Areas of restricted diffusion within the right medial temporal lobe, right basal ganglia, right parietal lobe and left frontal lobe consistent with acute/subacute punctate infarcts. Plan -We will plan to proceed with transesophageal echocardiogram with anesthesia to rule out PFO, and loop recorder placement to monitor for atrial fibrillation tomorrow. All risk reviewed with patient and in detail including the risk of infection bleeding aspiration, etc. Patient and understand the risk, and has elected to proceed. -Pt is currently on Lovenox, will need anticoagulation upon discharge. Will defer to neurology. -Will allow permissive hypertension per neurology recommendations. -On atorvastatin The patient was seen and evaluated by Dr. Tong who participated in care management and decision making. The exam, history, and the medical decision-making described in the above note were completed with the assistance of the mid-level provider. I reviewed and agree with the findings presented. I attest that I had a [id number] encounter with the patient on the same day, and personally performed and documented my assessment and findings in the medical record. will proceed with BUDDY and loop, risks reviewed Code Status: Full Code Discussed Condition With: and RN
[2018-02-17] MEDS: Montelukast 10 MG Tablet PO SCH (18:02)
--- NOTE | 2018-02-17 18:56 | P.PNNEU ---
Subjective Subjective Comments: no new c/o. He feels left leg strength is improving Active Medications: Active Medications Aripiprazole (Abilify) 5 mg PO DAILY [facility] Last Admin: 02/17/18 08:45 Dose: 5 mg Atorvastatin Calcium (Lipitor) 10 mg PO DAILY [facility] Last Admin: 02/17/18 08:46 Dose: 10 mg Clonidine HCl (Catapres) 0.1 mg PO Q6H PRN PRN Reason: SBP>180, DBP>95 Duloxetine HCl (Cymbalta) 60 mg PO DAILY [facility] Last Admin: 02/17/18 08:47 Dose: 60 mg Enalaprilat (Vasotec Inj) 1.25 mg IV.PUSH Q4H PRN PRN Reason: For SBP > 220 or DBP > 120 Enoxaparin Sodium (Lovenox Inj) 90 mg SQ Q12HR [facility] Last Admin: 02/17/18 08:44 Dose: 90 mg Fenofibrate (Tricor) 48 mg PO DAILY [facility] Last Admin: 02/17/18 08:45 Dose: 48 mg Finasteride (Proscar) 5 mg PO DAILY [facility] Last Admin: 02/17/18 08:46 Dose: 5 mg Montelukast Sodium (Singulair) 10 mg PO QPM [facility] Last Admin: 02/17/18 18:02 Dose: 10 mg Nebivolol (Bystolic) 10 mg PO DAILY [facility] Last Admin: 02/17/18 08:45 Dose: 10 mg Ondansetron HCl (Zofran Inj) 4 mg IV.PUSH Q6H PRN PRN Reason: NAUSEA OR VOMITING Pantoprazole Sodium (Protonix) 20 mg PO DAILY [facility] Last Admin: 02/17/18 08:45 Dose: 20 mg Ramipril (Altace) 10 mg PO DAILY [facility] Last Admin: 02/17/18 08:46 Dose: 10 mg Sodium Chloride (Ns Flush) 2 ml IV.FLUSH PRN PRN PRN Reason: FLUSH AFTER USING IV ACCESS Tamsulosin HCl (Flomax) 0.4 mg PO DAILY [facility] Last Admin: 02/17/18 08:46 Dose: 0.4 mg Temazepam (Restoril) 7.5 mg PO HS PRN PRN Reason: INSOMNIA Last Admin: 02/16/18 22:53 Dose: 7.5 mg Allergies/Adverse Reactions: Allergies Allergy/AdvReac Type Severity Reaction Status Date / Time penicillin G Allergy Severe Hives Verified 02/15/18 22:43 Physical Exam Vital signs: Vital Signs 02/16/18 20:00 02/16/18 23:23 02/17/18 04:00 Temperature 98.2 F 97.9 F 97.7 F Pulse Rate 60 62 48 L Respiratory Rate 20 20 17 Blood Pressure 181/85 H 183/91 H 194/95 H Pulse Oximetry 96 98 98 02/17/18 05:11 02/17/18 07:38 02/17/18 08:00 Temperature 98.2 F 98.9 F Pulse Rate 75 62 71 Respiratory Rate 19 18 Blood Pressure 126/66 198/97 H Pulse Oximetry 98 99 02/17/18 12:12 02/17/18 16:06 Temperature 97.9 F 98.8 F Pulse Rate 60 65 Respiratory Rate 20 20 Blood Pressure 181/86 H 162/85 H Pulse Oximetry 99 98 Intake & Output 02/16/18 02/17/18 02/17/18 18:59 06:59 18:59 Other: Date of Last Bowel Movement 02/15/18 02/15/18 02/15/18 - Routine Neurological Exam alert, speech normal CN intact MOTOR 5/5 BUE. 5/5 RLE. 4/5 LLE Review/Management - Diagnosis (1) CVA (cerebral vascular accident) Code(s): I63.9 - Cerebral infarction, unspecified Status: Acute Current Visit: Yes - Review/Management Plan: Pt scheduled for BUDDY tomorrow and loop recorder placement. Because of bilateral location of the stroke, which suggests cardio-embolic, I recommend anticoagulation with eliquis.
[2018-02-17 19:24] VITALS: RESP 16
[2018-02-18 03:45] VITALS: O2SAT 98
[2018-02-18 08:25] VITALS: TEMP 98.7
--- NOTE | 2018-02-18 09:54 | P.PNCA ---
Subjective Interval history: Patient sitting up in bed. Denies any complaints overnight. No chest pain, SOB, palpitations, weakness, dizziness, etc. He reports that his left lower extremity weakness seems to be improving. He reports he is ready to go home. Discussed procedure in detail as well and medications he will be discharged home on. The exam, history, and the medical decision-making described in the above note were completed with the assistance of the mid-level provider. I reviewed and agree with the findings presented. I attest that I had a [id number] encounter with the patient on the same day, and personally performed and documented my assessment and findings in the medical record. Medications and Allergies Allergies Allergy/AdvReac Type Severity Reaction Status Date / Time penicillin G Allergy Severe Hives Verified 02/15/18 22:43 Home Medications Medication Instructions Recorded Confirmed Type aripiprazole 5 mg PO DAILY 01/28/18 02/15/18 History duloxetine 60 mg PO DAILY 01/28/18 02/15/18 History fenofibrate nanocrystallized 48 mg PO DAILY 01/28/18 02/15/18 History finasteride 5 mg PO DAILY 01/28/18 02/15/18 History montelukast 10 mg PO QPM 01/28/18 02/15/18 History nebivolol [Bystolic] 10 mg PO DAILY 01/28/18 02/15/18 History omeprazole 20 mg PO DAILY 01/28/18 02/15/18 History ramipril 10 mg PO DAILY 01/28/18 02/15/18 History tamsulosin 0.4 mg PO DAILY 01/28/18 02/15/18 History Active Medications: Active Medications Aripiprazole (Abilify) 5 mg PO DAILY [facility] Last Admin: 02/17/18 08:45 Dose: 5 mg Atorvastatin Calcium (Lipitor) 10 mg PO DAILY [facility] Last Admin: 02/17/18 08:46 Dose: 10 mg Clonidine HCl (Catapres) 0.1 mg PO Q6H PRN PRN Reason: SBP>180, DBP>95 Last Admin: 02/18/18 03:43 Dose: 0.1 mg Duloxetine HCl (Cymbalta) 60 mg PO DAILY [facility] Last Admin: 02/17/18 08:47 Dose: 60 mg Enalaprilat (Vasotec Inj) 1.25 mg IV.PUSH Q4H PRN PRN Reason: For SBP > 220 or DBP > 120 Enoxaparin Sodium (Lovenox Inj) 90 mg SQ Q12HR [facility] Last Admin: 02/17/18 20:06 Dose: 90 mg Fenofibrate (Tricor) 48 mg PO DAILY [facility] Last Admin: 02/17/18 08:45 Dose: 48 mg Finasteride (Proscar) 5 mg PO DAILY [facility] Last Admin: 02/17/18 08:46 Dose: 5 mg Montelukast Sodium (Singulair) 10 mg PO QPM [facility] Last Admin: 02/17/18 18:02 Dose: 10 mg Nebivolol (Bystolic) 5 mg PO DAILY [facility] Ondansetron HCl (Zofran Inj) 4 mg IV.PUSH Q6H PRN PRN Reason: NAUSEA OR VOMITING Pantoprazole Sodium (Protonix) 20 mg PO DAILY [facility] Last Admin: 02/17/18 08:45 Dose: 20 mg Ramipril (Altace) 10 mg PO DAILY [facility] Last Admin: 02/17/18 08:46 Dose: 10 mg Sodium Chloride (Ns Flush) 2 ml IV.FLUSH PRN PRN PRN Reason: FLUSH AFTER USING IV ACCESS Tamsulosin HCl (Flomax) 0.4 mg PO DAILY [facility] Last Admin: 02/17/18 08:46 Dose: 0.4 mg Temazepam (Restoril) 7.5 mg PO HS PRN PRN Reason: INSOMNIA Last Admin: 02/17/18 20:05 Dose: 7.5 mg Physical Exam Vital signs: Vital Signs 02/17/18 12:12 02/17/18 16:06 02/17/18 19:20 Temperature 97.9 F 98.8 F 98.8 F Pulse Rate 60 65 68 Respiratory Rate 20 20 16 Blood Pressure 181/86 H 162/85 H 194/93 H Pulse Oximetry 99 98 97 02/17/18 20:00 02/17/18 23:45 02/18/18 03:45 Temperature 97.8 F 97.4 F L Pulse Rate 46 L 57 L 56 L Respiratory Rate 16 16 Blood Pressure 198/95 H 190/101 H Pulse Oximetry 96 98 02/18/18 08:00 Temperature 98.7 F Pulse Rate 50 L Respiratory Rate 16 Blood Pressure 183/90 H Pulse Oximetry 98 Intake & Output 02/17/18 02/18/18 02/18/18 18:59 06:59 18:59 Other: Date of Last Bowel Movement 02/15/18 02/15/18 - Constitutional no acute distress - Routine HEENT Exam Head: Present: normocephalic, atraumatic Eye: Present: PERRL, normal accommodation ENT: Present: mucous membranes moist - Routine Neck Exam Present: supple - Routine Respiratory Exam Present: CTA bilaterally - Routine Cardiovascular Exam Present: RRR, bradycardia - Routine Abdominal Exam Present: soft - Routine Skin Exam Present: intact - Routine Neurological Exam Present: alert, oriented X3 - Detailed Neurological Exam: Coma Scale Eye Opening: Spontaneous Verbal Response: Oriented Motor Response: Obey commands [place] Coma Scale Total: 15 - Routine Psychiatric Exam Present: normal affect Results 02/16/18 05:10 02/16/18 05:10 Intake and Output 02/17/18 02/18/18 02/18/18 22:59 06:59 14:59 Other: Date of Last Bowel Movement 02/15/18 - Imaging and Cardiology Imaging: Impressions Carotid Doppler Study 02/16/18 00:00 CONCLUSION: 1. No hemodynamically significant stenosis in either carotid artery. 2. Nonvisualization right vertebral artery. 3. Assessment and Plan - Plan Assessment CVA HTN Hyperlipidemia MRI results from 02/16/2018-Areas of restricted diffusion within the right medial temporal lobe, right basal ganglia, right parietal lobe and left frontal lobe consistent with acute/subacute punctate infarcts. Plan -We will plan to proceed with transesophageal echocardiogram with anesthesia to rule out PFO, and loop recorder placement to monitor for atrial fibrillation. All risk reviewed with patient and in detail including the risk of infection bleeding aspiration, etc. Patient and understand the risk, and have elected to proceed. -Per neurology, will start patient on Eliquis 5 mg PO BID and DC lovenox. -Will allow permissive hypertension per neurology recommendations. Medications adjusted this AM, due to bradycardia. Will cut bystolic in half to 5mg daily, and add amlodipine 5mg daily, to hopefully lower BP a little and decrease bradycardic episodes. -On atorvastatin Patient is cleared for DC home from Cardiology after procedure today. He will need to be DC'd home on Eliquis. Will plan to see in office next week. The patient was seen and evaluated by Dr. Tong who participated in care management and decision making. Code Status: Full Code Discussed Condition With: RN
[2018-02-18] MEDS ORDERED: amLODIPine 5 MG Tablet PO SCH (10:00)
[2018-02-18] MEDS: Enoxaparin Inj 100 MG/ML Syringe SQ SCH (10:13)
[2018-02-18] MEDS: Ramipril 5 MG Capsule PO SCH (10:28)
[2018-02-18] MEDS: Fenofibrate 48 MG Tablet PO SCH (10:28)
[2018-02-18] MEDS: Pantoprazole Sodium 20 MG DR Tablet PO SCH (10:28)
[2018-02-18] MEDS: Duloxetine 60 MG DR Capsule PO SCH (10:28)
[2018-02-18] MEDS: ARIPiprazole 5 MG Tablet PO SCH (10:28)
[2018-02-18] MEDS: Finasteride 5 MG Tablet PO SCH (10:29)
[2018-02-18] MEDS ORDERED: Chlorhexidine Gluconate 2% 1 Pack (2 Cloths) TOPICAL SCH (12:00)
[2018-02-18] MEDS ORDERED: Mupirocin 2% Nasal Oint Topical Syringe EACH NARE SCH (12:00)
[2018-02-18] MEDS ORDERED: Sod Chloride 0.9% Inj 1,000 ML IV.CONT SCH (12:00)
[2018-02-18] MEDS ORDERED: Vancomycin Inj 1,000 MG in Sodium Chlor 0.9% Inj 250 ML IV.SIG SCH (12:00)
[2018-02-18 12:44] VITALS: PULSE 58
[2018-02-18] MEDS ORDERED: Lidocaine PF 1% Inj 5 ML Syringe OTHER ONE (12:55)
--- NOTE | 2018-02-18 13:58 | MP ---
cc: Cedric Tong MD, James A MD PhD DATE OF OPERATION: PROCEDURE: Transesophageal echocardiogram. INDICATION: Cryptogenic stroke; rule out thromboembolic source. PROCEDURE: The patient was draped and prepped in usual manner. Anesthesia was given as per the Anesthesia Department and a full BUDDY performed. FINDINGS: The interatrial septum was intact. There did appear to be a "tunnel-like" PFO, but there was no evidence of [id number] shunting with bubble studies x2. The left and right atrium are not enlarged. The aortic valve moved normally. The mitral valve move normally. Doppler showed no significant mitral regurgitation. LV function was normal. The left atrial appendage was evaluated. There is no evidence of any clot or thrombus. The aorta was visualized to 35 cm and again there was no evidence of thrombus or dissection. CONCLUSION: 1. Negative transesophageal echocardiogram for thromboembolic source 2. Normal left ventricular function, negative for patent foramen ovale. MD LIZ Crane/lazaro , 01:39 PM , 01:48 PM
--- NOTE | 2018-02-18 14:04 | MP ---
cc: Cedric Tong MD, James A MD PhD [facility],Anamaria BULL DATE OF OPERATION: PROCEDURE: This is a loop recorder. INDICATIONS FOR LOOP RECORDER: Cryptogenic stroke. DESCRIPTION OF PROCEDURE: The patient was draped in usual manner. Anesthesia was given by the Anesthesia Department; a full BUDDY was performed. No obvious thromboembolic source was found. We decided to proceed with a loop recorder. Local lidocaine was used in the fourth intercostal space and then a Medtronic scalpel was used to perform an incision and a pocket was formed in the usual manner. Three different positions were tried in the pocket. Finally, a septal position was noted with good sensing and greater than 0.2 millivolt R-waves. The pocket was then closed in 1 layer with the Steri-Strip. CONCLUSION: Successful placement of Medtronic LINQ loop recorder. MD LIZ Crane/lazaro , 01:41 PM , 01:48 PM
[2018-02-18 14:36] VITALS: BP 155/77
--- NOTE | 2018-02-18 15:23 | P.PN ---
Subjective Interval history: Patient is seen in room post procedure. Reports that he is feeling well and is very ready to go home. No chest pain or shortness of breath. No nausea vomiting or diarrhea. He feels like his left leg is continuing to get stronger. Physical Exam Vital signs: Vital Signs 02/17/18 16:06 02/17/18 19:20 02/17/18 20:00 Temperature 98.8 F 98.8 F Pulse Rate 65 68 46 L Respiratory Rate 20 16 Blood Pressure 162/85 H 194/93 H Pulse Oximetry 98 97 02/17/18 23:45 02/18/18 03:45 02/18/18 08:00 Temperature 97.8 F 97.4 F L 98.7 F Pulse Rate 57 L 56 L 58 L Respiratory Rate 16 16 16 Blood Pressure 198/95 H 190/101 H 183/90 H Pulse Oximetry 96 98 98 02/18/18 14:35 Temperature Pulse Rate Respiratory Rate Blood Pressure 155/77 H Pulse Oximetry Intake & Output 02/17/18 02/18/18 02/18/18 18:59 06:59 18:59 Intake Total 250 / 250 Balance 250 / 250 Intake: IV 250 / 250 Vancomycin Inj 1,000 MG In NS 250 / 250 Inj 250 ML @ 250 mls/hr IV.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 SKIN: Warm, dry, intact, no ecchymosis or open lesions visible EYES: Pupils equal round and reactive, no scleral edema or drainage CARDIOVASCULAR: Regular rate and rhythm without murmurs, gallops, or rubs. RESPIRATORY: Clear to auscultation. Breath sounds equal bilaterally. No wheezes , rales, or rhonchi. GASTROINTESTINAL: Abdomen soft, non-tender, nondistended. Normal active bowel sounds MUSCULOSKELETAL: Extremities without clubbing, cyanosis, or edema. NEURO: Alert & Oriented x4 to person, place, time, situation. Moves all ext x4 , left lower extremity weaker than right, no lower extremity drift no tongue deviation, no facial droop Results - Labs CBC & Chem 7: 02/16/18 05:10 02/16/18 05:10 Assessment and Plan - Plan 67-year-old male with a history of hypertension, hyperlipidemia, GERD, BPH, and depression presented to the ED with complaints of left lower extremity weakness and unsteady gait. Left lower extremity weakness, likely related to TIA, questionable CVA Head CT reviewed and shows no acute abnormalities, suspected small vessel ischemic changes Patient states outpatient MRI showed multiple tiny ischemic strokes Consult neurology for evaluation -neurology feels this is cardioembolic in nature Consult to cardiology -planned placement of loop recorder and BUDDY Stopped aspirin. Started Lovenox. Eliquis upon discharge PT/OT Hypertension, chronic Resume home medications, monitor vitals We will allow permissive hypertension until neuro evaluation complete. 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
--- NOTE | 2018-02-18 15:55 | P.DS ---
Date of admission: 02/16/18 14:46 Primary care physician: Anamaria Guerra MD Attending physician on discharge: Suni Mack Anticipated date of discharge: 02/18/18 Brief History from admission: 67-year-old male with a history of hypertension, hyperlipidemia, GERD, BPH, and depression presented to the ED with complaints of left lower extremity weakness and unsteady gait. Patient states for the last month he has been having weakness in his lower extremities intermittently and today he tried to get up from the bed and almost nearly fell, and has been had increasing difficulty using his walker. He did have an outpatient MRI completed last week that showed multiple tiny areas of ischemia and is due to follow-up with a neurologist at the end of the month and scheduled for a carotid ultrasound next week, but due to increasing extremity weakness patient's felt she could not wait to be evaluated because he seems to be getting worse. Patient denies any numbness or tingling in lower extremities, no calf pain, no dizziness, no headache, no chest pain, no shortness of breath. DS: Diagnosis - Discharge Diagnosis (1) Hypertension Status: Chronic (2) Unstable gait Status: Acute (3) CVA (cerebral vascular accident) Status: Acute (4) Weakness Status: Acute (5) Cardioembolic stroke Status: Acute DS: Medications - Discharge Medications Prescriptions: apixaban [Eliquis] 5 mg PO BID #60 tab atorvastatin [Lipitor] 10 mg PO DAILY #30 tab DS: Summary Hospital Course: 67-year-old male with a history of hypertension, hyperlipidemia, GERD, BPH, and depression presented to the ED with complaints of left lower extremity weakness and unsteady gait. Found left lower extremity weakness, questionable CVA. Head CT reviewed and shows no acute abnormalities, suspected small vessel ischemic changes. Patient states outpatient MRI showed multiple tiny ischemic strokes. Consult neurology for evaluation -neurology feels this is cardioembolic in nature and recommends anticoagulation with Eliquis. Consult to cardiology -who placed loop recorder and completed BUDDY which was negative for thrombotic source. Patient to follow-up with cardiology as an outpatient. Also recommended to do physical therapy for the left leg weakness as an outpatient. - Time Spent with Patient Total time spent providing and/or coordinating discharge services: Less than 30 minutes - Quality: VTE Deep Vein Thrombosis/Pulmonary Embolism Present on Admission: No Exam Vital signs: Vital Signs 02/17/18 16:06 02/17/18 19:20 02/17/18 20:00 Temperature 98.8 F 98.8 F Pulse Rate 65 68 46 L Respiratory Rate 20 16 Blood Pressure 162/85 H 194/93 H Pulse Oximetry 98 97 02/17/18 23:45 02/18/18 03:45 02/18/18 08:00 Temperature 97.8 F 97.4 F L 98.7 F Pulse Rate 57 L 56 L 58 L Respiratory Rate 16 16 16 Blood Pressure 198/95 H 190/101 H 183/90 H Pulse Oximetry 96 98 98 02/18/18 14:35 Temperature Pulse Rate Respiratory Rate Blood Pressure 155/77 H Pulse Oximetry Intake & Output 02/17/18 02/18/18 02/18/18 18:59 06:59 18:59 Intake Total 250 / 250 Balance 250 / 250 Intake: IV 250 / 250 Vancomycin Inj 1,000 MG In NS 250 / 250 Inj 250 ML @ 250 mls/hr IV.SIG SOCIAL WORK JOB [employer]LES [facility] Rx#:[id number] Other: # Voids 1 Date of Last Bowel Movement 02/15/18 02/15/18 Narrative: GENERAL: This is a well-nourished, well-developed patient, in no apparent distress. SKIN: Warm, dry, intact, no ecchymosis or open lesions visible EYES: Pupils equal round and reactive, no scleral edema or drainage CARDIOVASCULAR: Regular rate and rhythm without murmurs, gallops, or rubs. RESPIRATORY: Clear to auscultation. Breath sounds equal bilaterally. No wheezes , rales, or rhonchi. GASTROINTESTINAL: Abdomen soft, non-tender, nondistended. Normal active bowel sounds MUSCULOSKELETAL: Extremities without clubbing, cyanosis, or edema. NEURO: Alert & Oriented x4 to person, place, time, situation. Moves all ext x4 , left lower extremity weaker than right, no lower extremity drift no tongue deviation, no facial droop Results Procedures completed during hospitalization: Implanted loop recorder BUDDY - Impressions ITS Impressions Head CT 02/15/18 17:17 CONCLUSION: 1. No acute abnormality is seen. 2. Suspected small vessel ischemic change in the white matter. . Carotid Doppler Study 02/16/18 00:00 CONCLUSION: 1. No hemodynamically significant stenosis in either carotid artery. 2. Nonvisualization right vertebral artery. 3. Head MRI 02/16/18 00:00 CONCLUSION: 1. Areas of restricted diffusion within the right medial temporal lobe, right basal ganglia, right parietal lobe and left frontal lobe consistent with acute/ subacute punctate infarcts. 2. No midline shift or mass effect. Head MRA 02/16/18 07:03 CONCLUSION: 1. Negative MRA Cow ([place]) non contrast. Discharge Plan - Discharge Disposition Patient Disposition: Discharge Home - Discharge Condition Condition: Stable - Discharge Order Discharge Orders: Discharge Order (Routine); Ordered 02/18/18 Ordered By: Taylor Burger Cardiology Clear for Discharge (Routine); Ordered 02/18/18 Ordered By: Cedric Tong - Physicians Team Primary Care Provider: Anamaria Guerra Attending Provider: Suni Mack Other Providers: Fady Dimas MD, PhD ; Sherin Valdez MD ; Cedric Tong MD
== END 2018-02-18 17:28 | disposition home or self-care (01) ==
LOC: NEPE 17:06 → NEDA 17:06 → NEPHCDU 22:42
PROVIDERS: ADMIT Internal Medicine; ATTEND Internal Medicine
PROC: LOOPREV (2018-02-18 12:30)

== ENCOUNTER 2018-03-13 09:00 | Inpatient (IN) ==
[2018-03-13] MEDS ORDERED: Sod Chloride 0.9% Inj 1,000 ML IV.CONT SCH (09:45)
--- NOTE | 2018-03-13 09:48 | ED ---
HPI General Chief Complaint: Neuro Symptoms/Deficit Stated Complaint: difficulty walking Time Seen by Provider: 03/13/18 09:13 Source: patient and family Mode of arrival: wheelchair Limitations: no limitations History of Present Illness HPI Narrative: The patient is a 67-year-old male who presents to the emergency department for weakness of the right leg. The patient was recently hospitalized in the beginning of February for multiple infarcts to the brain, thought to be embolic in nature. The patient was placed on Eliquis at that time and had a loop recorder inserted. The patient states initially had weakness of both lower extremities with his previous stroke, was discharged home with outpatient rehab. However, the patient did not think the rehabilitation was aggressive enough, therefore, he had a clinical trainer train him at the gym last week on . When the patient left he felt like he had some right sided leg weakness, after working out legs on the same day. The patient has fallen several times according to the secondary to the right leg weakness and is unsteady on his feet at home. The patient denies any headache, neck pain, chest pain, shortness of breath, nausea, vomiting, or abdominal pain. The also states the patient has a mild change in speech, however, the patient has not noticed a change in his speech. He denies any numbness or tingling of the upper or lower extremities. Symptoms are moderate. There are no current alleviating factors. Onset (ago): day(s) Timing confirmed by: spouse Location: Reports right leg History of same: Yes Severity: severe Quality: Reports weak Relieving factors: none Exacerbating factors: none Context: Reports gradual onset On Anticoagulants: Yes Treatments Prior to Arrival: Reports other medication Related Data Home Medications Medication Instructions Recorded Confirmed aripiprazole 5 mg PO DAILY 01/28/18 03/13/18 duloxetine 60 mg PO DAILY 01/28/18 03/13/18 fenofibrate nanocrystallized 48 mg PO DAILY 01/28/18 03/13/18 finasteride 5 mg PO DAILY 01/28/18 03/13/18 montelukast 10 mg PO QPM 01/28/18 03/13/18 nebivolol [Bystolic] 10 mg PO DAILY 01/28/18 03/13/18 omeprazole 20 mg PO DAILY 01/28/18 03/13/18 ramipril 10 mg PO DAILY 01/28/18 03/13/18 tamsulosin 0.4 mg PO DAILY 01/28/18 03/13/18 Previous Rx's Medication Instructions Recorded amlodipine [Norvasc] 5 mg PO DAILY #30 tab 02/18/18 apixaban [Eliquis] 5 mg PO BID #60 tab 02/18/18 atorvastatin [Lipitor] 10 mg PO DAILY #30 tab 02/18/18 Allergies Allergy/AdvReac Type Severity Reaction Status Date / Time penicillin G Allergy Severe Hives Verified 02/15/18 22:43 Review of Systems ROS: all other systems reviewed are negative [facility] Social History Social History Substance History: No History of Abuse Second Hand Smoke Exposure: Yes Smoking Status: Former smoker Tobacco Type: Cigarettes How Often Do You Have a Drink Containing Alcohol: 4 or more times a week Recent Travel in [facility] within the Last 8 Weeks: No Recent Out of Country Travel within the Last 8 Weeks: No Immunization History Tetanus Immunization: >5 Years Exam Narrative Exam Narrative: GENERAL: Awake, alert, pleasant 67-year-old male who appears his stated age and is in no acute respiratory distress. SKIN: Focused skin assessment warm/dry. HEAD: Atraumatic. Normocephalic. EYES: Pupils equal and round. 3 mm bilateral and reactive. EOMs are intact. ENT: No nasal bleeding or discharge. Mucous membranes pink and moist. NECK: Trachea midline. No JVD. CARDIOVASCULAR: Regular rate and rhythm. No murmur appreciated. RESPIRATORY: No accessory muscle use. Clear to auscultation. Breath sounds equal bilaterally. GASTROINTESTINAL: Abdomen soft, non-tender, nondistended. MUSCULOSKELETAL: No obvious deformities. No clubbing. No cyanosis. No edema. NEUROLOGICAL: Awake and alert. No obvious cranial nerve deficits. Motor grossly within normal limits. Minimal dysarthria. No drift of the upper or lower extremities. Heel to zhang is normal. Finger to nose is normal. Plantarflexion is 5 out of 5, extension knees is 5 out of 5, flexion of the hips is 5 out of 5. Smile is symmetric, tongue is midline. Patient is oriented x4. PSYCHIATRIC: Appropriate mood and affect; insight and judgment normal. Course Initial Documented Vital Signs Temperature 98.8 F 03/13/18 09:06 Pulse Rate 63 03/13/18 09:06 Respiratory Rate 17 03/13/18 09:06 Blood Pressure 208/98 H 03/13/18 09:06 Pulse Oximetry 97 03/13/18 09:06 Last Documented Vital Signs Temperature 98.8 F 03/13/18 09:06 Pulse Rate 62 03/13/18 12:42 Respiratory Rate 19 03/13/18 12:42 Blood Pressure 192/86 H 03/13/18 12:42 Pulse Oximetry 99 03/13/18 12:42 Medical Decision Making MDM Narrative Medical decision making narrative: IV was established, labs are drawn and sent, and the patient was placed on cardiac telemetry monitoring and continuous pulse oximetry monitoring. EKG was ordered and interpreted. Stat CT the brain was ordered to rule out intracranial hemorrhage. Brain was negative for acute hemorrhage, does reveal right basal ganglia infarction. Laboratory evaluation was unremarkable. MRI of the brain was obtained. The patient was given a trial of ambulation in the emergency department, he was significantly off balance even walking with a nurse, appeared to have difficulty with his right lower extremity during ambulatory trial. MRI reveals bilateral infarcts in the corner radiata, unsure if this is subacute versus acute, however, he has acute symptoms including right-sided leg weakness and mild dysarthria according to the . We tried to ambulate the patient, he had difficulty ambulating without assistance. The states since at home and is unable to do his ADLs. The patient most likely will need inpatient rehab as he has fallen approximately 11 times. I discussed the patient with Dr. Brown who agrees with admission and request consultation to neurology be placed. Medical Screen Exam Complete: Yes Emergency Medical Condition: Yes Differential Diagnosis Differential Diagnosis: Differential diagnosis includes CVA, TIA, intracranial hemorrhage, Parkinson's disease, electrolyte abnormality, transient neurologic deficit, subdural hemorrhage, subarachnoid hemorrhage. Lab Data Result diagrams: 03/13/18 09:45 03/13/18 09:45 Lab Results 03/13/18 03/13/18 03/13/18 Range/Units 09:45 09:45 09:45 WBC 11.2 H (4.0-11.0) th/mm3 RBC 4.82 (4.50-5.90) mil/mm3 Hgb 15.7 (13.0-17.0) gm/dL Hct 45.0 (39.0-51.0) % MCV 93.3 (80.0-100.0) fL MCH 32.5 (27.0-34.0) pg MCHC 34.8 (32.0-36.0) % RDW 12.6 (11.6-17.2) % Plt Count 207 (150-450) th/mm3 MPV 8.5 (7.0-11.0) fL Neut % (Auto) 79.6 H (16.0-70.0) % Lymph % (Auto) 11.0 (9.0-44.0) % [place] % (Auto) 7.0 (0.0-8.0) % Eos % (Auto) 1.8 (0.0-4.0) % Baso % (Auto) 0.6 (0.0-2.0) % Neut # (Auto) 8.9 H (1.8-7.7) th/mm3 Lymph # (Auto) 1.2 (1.0-4.8) th/mm3 [place] # (Auto) 0.8 (0.0-0.9) th/mm3 Eos # (Auto) 0.2 (0.0-0.4) th/mm3 Baso # (Auto) 0.1 (0.0-0.2) th/mm3 WBC Differential . Differential Comment Auto diff final PT 10.6 (9.8-11.6) sec INR 1.0 Ratio APTT 28.7 (23.4-31.7) sec Sodium 140 (136-145) meq/L Potassium 4.0 (3.5-5.1) meq/L Chloride 104 (98-107) meq/L Carbon Dioxide 27.5 (21.0-32.0) meq/L Anion Gap 9 (5-15) meq/L BUN 16 (7-18) mg/dL Creatinine 1.48 H (0.60-1.30) mg/dL Estimated GFR 47 L (>89) mL/min Random Glucose 99 (74-106) mg/dL Calcium 9.0 (8.5-10.1) mg/dL Total Bilirubin 0.8 (0.2-1.0) mg/dL AST 43 H (15-37) U/L ALT 43 (12-78) U/L Alkaline Phosphatase 63 (45-117) U/L Total Creatine Kinase 732 H (39-308) U/L CK-MB (CK-2) 3.7 H (0.5-3.6) ng/mL CK-MB (CK-2) % 0.5 (0.0-4.0) % Troponin I Less than 0.02 L (0.02-0.05) ng/mL Total Protein 7.8 (6.4-8.2) g/dL Albumin 4.1 (3.4-5.0) g/dL Imaging Data Radiologist's impression: Head CT 03/13/18 09:40 CONCLUSION: 1. Subacute lacunar infarct right basal ganglia 2. No evidence of acute infarct, hemorrhage, mass or edema. 3. Chronic white matter ischemic changes with central volume loss. . Head MRI 03/13/18 10:18 CONCLUSION: 1. Small foci of restricted diffusion bilaterally within the james radiata characteristic of small deep white matter infarcts. 2. No evidence of acute hemorrhage. 3. Mild chronic ischemic white matter disease with periventricular T2 hyperintensities. 4. No evidence of cerebral cortical infarct or hemorrhage. ECG Data EKG Prior to Arrival: No Attestation: I personally reviewed and interpreted this ECG as follows: Interpretation: EKG reveals sinus bradycardia with a heart rate of 57. Significant for T wave changes with inverted T wave noted in lead V6, I, and aVL. Discharge Plan Discharge Disposition Patient Disposition: 30 Still Patient Discharge Condition Condition: Stable Discharge Details Diagnosis: CVA (cerebral vascular accident), Unstable gait Physicians Team ED Provider: Macario Goncalves Primary Care Provider: Anamaria Guerra Rxs /Orders / Referrals /Forms Prescriptions: No Action atorvastatin [Lipitor] 10 mg Tablet 10 mg PO DAILY Qty: 30 RF: 0 amlodipine [Norvasc] 5 mg Tablet 5 mg PO DAILY Qty: 30 RF: 0 apixaban [Eliquis] 5 mg Tablet 5 mg PO BID Qty: 60 RF: 0 tamsulosin 0.4 mg Capsule,Extended Release 24hr 0.4 mg PO DAILY RF: 0 montelukast 10 mg Tablet 10 mg PO QPM RF: 0 finasteride 5 mg Tablet 5 mg PO DAILY RF: 0 ramipril 10 mg Capsule 10 mg PO DAILY RF: 0 aripiprazole 5 mg Tablet 5 mg PO DAILY RF: 0 duloxetine 60 mg Capsule,Delayed Release(Dr/Ec) 60 mg PO DAILY RF: 0 fenofibrate nanocrystallized 48 mg Tablet 48 mg PO DAILY RF: 0 nebivolol [Bystolic] 10 mg Tablet 10 mg PO DAILY RF: 0 omeprazole 20 mg Tablet,Delayed Release (Dr/Ec) 20 mg PO DAILY RF: 0 Discharge Interventions Interventions: Vital Signs Last Done: 03/13/18 12:42 Status ED Status: Admitted Observation Patient
--- NOTE | 2018-03-13 10:24 | CT ---
EXAM DATE: 03/13/2018 10:13 AM EST AGE/SEX: 67 years / Male INDICATIONS: Right leg weakness 4 days, Intracerebral hemorrhage CLINICAL DATA: This is the patient's initial encounter. Patient reports that signs and symptoms have been present for 4 - 6 days and indicates a pain score of 0/10. MEDICAL/SURGICAL HISTORY: Gastroesophageal reflux disease. Hypertension. None. RADIATION DOSE: 56.35 CTDI (mGy) COMPARISON: [facility] [place] HEAD W/O CONTRAST, 02/15/2018. . TECHNIQUE: CT of the head without contrast. Using automated exposure control and adjustment of the mA and/or kV according to patient size, radiation dose was kept as low as reasonably achievable to ob tain optimal diagnostic quality images. DICOM format image data is available electronically for revi ew and comparison. FINDINGS: Cerebrum: A focal hypodensity in the right basal ganglia just lateral to the posterior limb of the i nternal capsule has become significantly more prominent and more conspicuous. There is no evidence of mass effect, edema or hemorrhage. Enlargement of the CSF spaces especially the lateral ventricles is stable. Cerebral white matter hypodensities are again noted. There are no other suspicious hypodensities. Posterior Fossa: The cerebellum and brainstem are intact. The 4th ventricle is midline. The cerebe llopontine angle is unremarkable. Extracranial: The visualized portion of the orbits is intact. Skull: The calvaria is intact. No evidence of skull fracture. CONCLUSION: 1. Subacute lacunar infarct right basal ganglia 2. No evidence of acute infarct, hemorrhage, mass or edema. 3. Chronic white matter ischemic changes with central volume loss. . Electronically signed by: Lamont Estes MD 03/13/2018 10:22 AM EST
[2018-03-13 10:26] LABS: Baso # (Auto) 0.1 th/mm3 (0.0-0.2); Baso % (Auto) 0.6 % (0.0-2.0); Eos # (Auto) 0.2 th/mm3 (0.0-0.4); Eos % (Auto) 1.8 % (0.0-4.0); Hemoglobin 15.7 gm/dL (13.0-17.0); Lymph # (Auto) 1.2 th/mm3 (1.0-4.8); Mean Corpuscular HGB Conc 34.8 % (32.0-36.0); Mean Corpuscular Hemoglobin 32.5 pg (27.0-34.0); Mean Corpuscular Volume 93.3 fL (80.0-100.0); Mean Platelet Volume 8.5 fL (7.0-11.0); Mono # (Auto) 0.8 th/mm3 (0.0-0.9); Neut # (Auto) 8.9 th/mm3 (1.8-7.7); Neut % (Auto) 79.6 % (16.0-70.0); Platelet Count 207 th/mm3 (150-450); Red Blood Count 4.82 mil/mm3 (4.50-5.90); Red Cell Distribution Width 12.6 % (11.6-17.2); White Blood Count 11.2 th/mm3 (4.0-11.0)
[2018-03-13 10:36] LABS: Activated Partial Thrombo Time 28.7 sec (23.4-31.7); Prothrombin Time 10.6 sec (9.8-11.6)
[2018-03-13 10:45] LABS: Alanine Aminotransferase 43 U/L (12-78); Albumin 4.1 g/dL (3.4-5.0); Anion Gap 9 meq/L (5-15); Aspartate Aminotransferase 43 U/L (15-37); Blood Urea Nitrogen 16 mg/dL (7-18); Carbon Dioxide 27.5 meq/L (21.0-32.0); Chloride 104 meq/L (98-107); Glomerular Filtration Rate 47 mL/min (>89); Glucose,Random 99 mg/dL (74-106); Sodium 140 meq/L (136-145)
[2018-03-13 10:48] LABS: Alkaline Phosphatase 63 U/L (45-117); Creatine Kinase 732 U/L (39-308); Total Protein 7.8 g/dL (6.4-8.2)
[2018-03-13 11:00] LABS: CKMB Percent 0.5 % (0.0-4.0); Creatine Kinase MB 3.7 ng/mL (0.5-3.6)
--- NOTE | 2018-03-13 12:36 | MR ---
EXAM DATE: 03/13/2018 11:26 AM EST AGE/SEX: 67 years / Male INDICATIONS: Right sided weakness. CLINICAL DATA: This is the patient's initial encounter. Patient reports that signs and symptoms have been present for 1 day and indicates a pain score of 0/10. MEDICAL/SURGICAL HISTORY: Carcinoma, prostatic. . TURP. 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 COMPARISON: [facility], MRA HEAD W/O CONTRAST, 02/16/2018. . TECHNIQUE: Multiplanar, multisequence examination of the brain was performed without contrast. FINDINGS: Cerebrum: The ventricles are normal for age. No evidence of midline shift, mass lesion, hemorrhage or acute infarction. No extraaxial fluid collections are seen. The pituitary gland and suprasellar cistern are normal in configuration. White Matter: Small foci of restricted diffusion are identified bilaterally within the james radiat a. These are located in the deep white matter between the frontal and parietal lobes. Periventricular T2 hyperintensity is seen throughout the cerebral white matter. Posterior Fossa: The cerebellum and brainstem are intact. The 4th ventricle is midline. The cerebel lopontine angle is unremarkable. The cerebellar tonsils are normal in position. Diffusion Imaging: No focal areas of restricted diffusion are seen. No evidence of acute infarction . Extracranial: The visualized portions of the orbits and paranasal sinuses are unremarkable. CONCLUSION: 1. Small foci of restricted diffusion bilaterally within the james radiata characteristic of small deep white matter infarcts. 2. No evidence of acute hemorrhage. 3. Mild chronic ischemic white matter disease with periventricular T2 hyperintensities. 4. No evidence of cerebral cortical infarct or hemorrhage. Electronically signed by: Lamont Estes MD 03/13/2018 12:35 PM EST
[2018-03-13 13:10] LABS: Bilirubin,Urine Negative (Negative); Clarity,Urine Clear (Clear); Color,Urine Yellow (Yellw/Straw); Glucose,Urine (UA) Negative (Negative); Leukocyte Esterase,Urine Negative (Negative); Mucus,Urine Few /lpf (Occasional); Nitrite,Urine Negative (Negative); Specific Gravity,Urine 1.008 (1.002-1.035)
[2018-03-13] MEDS ORDERED: amLODIPine 5 MG Tablet PO ONE (13:42)
--- NOTE | 2018-03-13 17:13 | P.HP ---
History of Present Illness Service: [facility] hospitalist service Primary Care Physician: Anamaria Guerra MD Chief Complaint: Right lower extremity weakness "giving out" frequent fall History of Present Illness: Patient is a 67-year-old male with known history of hypertension status post CVA with multiple infarcts last February 2018 which was deemed to be embolic. Patient had a workup done with a BUDDY that was negative. A loop recorder was done which patient states came out negative. At that time he was have having left lower extremity weakness. Patient was discharged then to [facility] rehab but was not happy there. Patient states that he was actually doing well with a sports medicine trainer in the gym who was very aggressive and he trains almost 3 times a week 45 minutes. He was brought in by his because of frequent falling. Patient states that since has been having every time he let go of the walker this time to reach for something and fell. Patient denies any dizziness any nausea vomiting. No weakness no back pain or no radiculopathy. Patient was brought in by and admitted for further evaluation. Patient denies any fever chest pain shortness of breath no diarrhea no incontinence. Patient states good appetite compliant with medication. Quit smoking since February. Inpatient Certification: I certify that the inpatient services were ordered in accordance with Medicare regulations governing the order. This includes certification that hospital inpatient services are reasonable and necessary and in the case of services not specified as inpatient-only under 42 CFR 419.22(n), that they are appropriately provided as inpatient services in accordance to with the 2-midnight benchmark under 43 CFR 412.3(e) Estimated Total Length of Stay (Days): 2 Plans for Post Hospital Care: Not yet determined Review of Systems No fever no chest pain no shortness of breath denies any dizziness or tinnitus Denies any nausea vomiting denies any incontinence Bowel movement regular no melena or hematochezia, No leg swelling Denies any radiculopathy denies any back pain PMFSH - History History Provided By: Patient - Medical History Medical History: Medical History (Last Reviewed 03/14/18 @ 07:35 by Hector Martines) Decreased renal function Depression Elevated cholesterol GERD (gastroesophageal reflux disease) Hydronephrosis Hypertension - Surgical History Surgical History: Surgical History (Last Reviewed 03/14/18 @ 07:35 by Hector Martines) History of prostate surgery Hx of transurethral resection of prostate - Family History Family History: Family History (Last Reviewed 02/16/18 @ 06:54 by Felipa Mejia) Other Hypertension - Tobacco History Second Hand Smoke Exposure: Yes Smoking Status: Former smoker Tobacco Type: Cigarettes - Alcohol History How Often Do You Have a Drink Containing Alcohol: 4 or more times a week - Substance Use History Substance History: No History of Abuse - Travel History Recent Travel in the [place] Within the Last 8 Weeks: No Recent Travel Out of the Country Within the Last 8 Weeks: No - Immunization History Tetanus Immunization: >5 Years Medications and Allergies Active Medications: Active Medications Amlodipine Besylate (Norvasc) 10 mg PO DAILY MAGALYS Apixaban (Eliquis) 5 mg PO BID MAGALYS Enalapril Maleate (Vasotec) 10 mg PO BID MAGALYS Sodium Chloride (Ns Inj) 1,000 mls @ 70 mls/hr IV.CONT .[id number] MAGALYS Stop: 03/14/18 00:02 Last Admin: 03/13/18 10:33 Dose: 70 mls/hr Nebivolol (Bystolic) 10 mg PO DAILY MAGALYS Sodium Chloride (Ns Flush) 2 ml IV.FLUSH PRN PRN PRN Reason: FLUSH AFTER USING IV ACCESS Allergies Allergy/AdvReac Type Severity Reaction Status Date / Time penicillin G Allergy Severe Hives Verified 02/15/18 22:43 Home Medications Medication Instructions Recorded Confirmed Type aripiprazole 5 mg PO DAILY 01/28/18 03/13/18 History duloxetine 60 mg PO DAILY 01/28/18 03/13/18 History fenofibrate nanocrystallized 48 mg PO DAILY 01/28/18 03/13/18 History finasteride 5 mg PO DAILY 01/28/18 03/13/18 History montelukast 10 mg PO QPM 01/28/18 03/13/18 History nebivolol [Bystolic] 10 mg PO DAILY 01/28/18 03/13/18 History omeprazole 20 mg PO DAILY 01/28/18 03/13/18 History ramipril 10 mg PO DAILY 01/28/18 03/13/18 History tamsulosin 0.4 mg PO DAILY 01/28/18 03/13/18 History Exam Vital signs: Vital Signs 03/13/18 09:06 03/13/18 09:11 03/13/18 12:42 Temperature 98.8 F Pulse Rate 63 58 L 62 Respiratory Rate 17 19 19 Blood Pressure 208/98 H 162/83 H 192/86 H Pulse Oximetry 97 98 99 03/13/18 13:30 03/13/18 14:30 03/13/18 15:33 Temperature Pulse Rate 74 70 67 Respiratory Rate 22 16 21 Blood Pressure 239/157 H 213/95 H 195/97 H Pulse Oximetry 98 99 98 03/13/18 16:00 03/13/18 16:50 03/13/18 16:51 Temperature 98 F Pulse Rate 66 61 69 Respiratory Rate 20 Blood Pressure 181/89 H 179/87 H 204/100 H Pulse Oximetry 97 03/13/18 16:52 03/13/18 16:53 Temperature Pulse Rate 69 61 Respiratory Rate Blood Pressure 204/102 H 179/87 H Pulse Oximetry Intake & Output 03/12/18 03/13/18 03/13/18 19:59 06:59 18:59 Output Total 1000 / 1000 Balance -1000 / -1000 Weight 97.069 kg Output: Urine 1000 / 1000 Narrative: Awake alert oriented x3 not in any form of distress HEENT exam anicteric sclerae pink palpebral conjunctivae Neck supple no JVD no bruit Chest lungs bilateral breath sounds equal no rales no wheezes Regular rhythm Abdomen is soft good bowel sounds no guarding Extremities no edema good peripheral pulses Neurologic exam ANO x3 cranial nerves grossly intact Manual motor test 5/5 in all extremities Grossly no sensory deficit, DTRs +1 on all extremities Gait patient was able to stand up for me with a walker and walk a few steps steadily. However when we let go of the walker unable to bear weight on the left leg Results - Labs CBC & Chem 7: 03/13/18 09:45 03/14/18 05:38 Labs: Laboratory Results - last 24 hr 03/13/18 03/13/18 03/13/18 09:45 09:45 09:45 WBC 11.2 H RBC 4.82 Hgb 15.7 Hct 45.0 MCV 93.3 MCH 32.5 MCHC 34.8 RDW 12.6 Plt Count 207 MPV 8.5 Neut % (Auto) 79.6 H Lymph % (Auto) 11.0 Hendricks % (Auto) 7.0 Eos % (Auto) 1.8 Baso % (Auto) 0.6 Neut # (Auto) 8.9 H Lymph # (Auto) 1.2 Hendricks # (Auto) 0.8 Eos # (Auto) 0.2 Baso # (Auto) 0.1 WBC Differential . Differential Comment Auto diff final PT 10.6 INR 1.0 APTT 28.7 Sodium 140 Potassium 4.0 Chloride 104 Carbon Dioxide 27.5 Anion Gap 9 BUN 16 Creatinine 1.48 H Estimated GFR 47 L POC Glucose Random Glucose 99 Calcium 9.0 Total Bilirubin 0.8 AST 43 H ALT 43 Alkaline Phosphatase 63 Total Creatine Kinase 732 H CK-MB (CK-2) 3.7 H CK-MB (CK-2) % 0.5 Troponin I Less than 0.02 L Total Protein 7.8 Albumin 4.1 Urine Color Urine Clarity Urine pH Ur Specific [place] Urine Protein Urine Glucose (UA) Urine Ketones Urine Occult Blood Urine Nitrate Urine Bilirubin Urine Urobilinogen Ur Leukocyte Esterase Urine RBC Urine WBC Urine Mucus Micro UA Comment Ur Microscopic Review Urine Culture Comments 03/13/18 03/13/18 12:43 16:43 WBC RBC Hgb Hct MCV MCH MCHC RDW Plt Count MPV Neut % (Auto) Lymph % (Auto) Hendricks % (Auto) Eos % (Auto) Baso % (Auto) Neut # (Auto) Lymph # (Auto) Hendricks # (Auto) Eos # (Auto) Baso # (Auto) WBC Differential Differential Comment PT INR APTT Sodium Potassium Chloride Carbon Dioxide Anion Gap BUN Creatinine Estimated GFR POC Glucose 104 Random Glucose Calcium Total Bilirubin AST ALT Alkaline Phosphatase Total Creatine Kinase CK-MB (CK-2) CK-MB (CK-2) % Troponin I Total Protein Albumin Urine Color Yellow Urine Clarity Clear Urine pH 6.0 Ur Specific [place] 1.008 Urine Protein Negative Urine Glucose (UA) Negative Urine Ketones Negative Urine Occult Blood Negative Urine Nitrate Negative Urine Bilirubin Negative Urine Urobilinogen Less than 2 Ur Leukocyte Esterase Negative Urine RBC 1 Urine WBC 1 Urine Mucus Few H Micro UA Comment Culture not ind Ur Microscopic Review Not Reportable Urine Culture Comments Culture not ind - Imaging Impressions Head CT 03/13/18 09:40 CONCLUSION: 1. Subacute lacunar infarct right basal ganglia 2. No evidence of acute infarct, hemorrhage, mass or edema. 3. Chronic white matter ischemic changes with central volume loss. . Head MRI 03/13/18 10:18 CONCLUSION: 1. Small foci of restricted diffusion bilaterally within the james radiata characteristic of small deep white matter infarcts. 2. No evidence of acute hemorrhage. 3. Mild chronic ischemic white matter disease with periventricular T2 hyperintensities. 4. No evidence of cerebral cortical infarct or hemorrhage. Caprini VTE Risk Assessment Caprini Risk Assessment Model: Point Value = 1 Point Value = 2 Point Value = 3 Point Value = 5 Age 41-60 Minor surgery BMI > 25 kg/m2 Swollen legs Varicose veins or History of unexplained or recurrent spontaneous Oral contraceptives or hormone replacement Sepsis (< 1 month) Serious lung disease, including pneumonia (< 1 month) Abnormal pulmonary function Acute myocardial infarction Congestive heart failure (< 1 month) History of inflammatory bowel disease Medical patient at bed rest Age 61-74 Arthroscopic surgery Major open surgery (> 45 min) Laparoscopic surgery (> 45 min) Malignancy Confined to bed (> 72 hours) Immobilizing plaster cast Central venous access Age >= 75 History of VTE Family history of VTE Factor V Leiden Prothrombin [id number] Lupus anticoagulant Anticardiolipin antibodies Elevated serum homocysteine Heparin-induced thrombocytopenia Other congenital or acquired thrombophilia Stroke (< 1 month) Elective arthroplasty Hip, pelvis, or leg fracture Acute spinal cord injury (< 1 month) Prophylaxis Regimen: Total Risk Factor Score Risk Level Prophylaxis Regimen 0-1 Low Early ambulation 2 Moderate Order ONE of the following: *Sequential Compression Device (SCD) *Heparin 5000 units SQ BID 3-4 Higher Order ONE of the following medications: *Heparin 5000 units SQ TID *Enoxaparin/Lovenox 40 mg SQ daily (WT < 150 kg, CrCl > 30 mL/min) *Enoxaparin/Lovenox 30 mg SQ daily (WT < 150 kg, CrCl > 10-29 mL/min) *Enoxaparin/Lovenox 30 mg SQ BID (WT < 150 kg, CrCl > 30 mL/min) AND/OR *Sequential Compression Device (SCD) 5 or more Highest Order ONE of the following medications: *Heparin 5000 units SQ TID (Preferred with Epidurals) *Enoxaparin/Lovenox 40 mg SQ daily (WT < 150 kg, CrCl > 30 mL/min) *Enoxaparin/Lovenox 30 mg SQ daily (WT < 150 kg, CrCl > 10-29 mL/min) *Enoxaparin/Lovenox 30 mg SQ BID (WT < 150 kg, CrCl > 30 mL/min) AND *Sequential Compression Device (SCD) Assessment and Plan - Plan 67-year-old male presenting with History of recent CVA multiple infarcts in February 2018 r/o new CVA - At that time presented with left lower extremity weakness which has since resolved -Now presenting with right lower extremity weakness and difficulty ambulating -Continue on Eliquis 5 mg twice a day for now till evaluated by Neurology -Neurology consulted patient known to Dr. Dimas Inability to ambulate specifically with right lower extremity weakness on weightbearing-since . - imaging studies shows no acute events. - Although patient denies any back pain or radiculopathy at all we will go ahead and do an MRI of the thoracic and lumbar spine -We will get PT to evaluate. Advised patient to use a walker all the time. -Patient denies any dizziness with changes in position but will check an orthostatic today Hypertension- elevated readings. -Twelve-lead EKG shows normal sinus rhythm no acute ST-T wave changes -Will continue on amlodipine will increase it to 10 mg daily -Change his ramipril to enalapril 10 mg twice a day -Continue on Bystolic -Consider adding another agent like possibly hydralazine for better BP control Chronic kidney insufficiency -Renal functions near baseline. Slightly elevated creatinine kinase We will start on gentle hydration Hypertriglyceridemia Continue on fenofibrate We will hold off on statin for now with elevated CK History of depression continue on Abilify. Continue on home meds omeprazole, Flomax, finasteride DVT prophylaxis patient on Eliquis Patient on PPI
--- NOTE | 2018-03-13 17:22 | MB ---
cc: Allyn Donald MD DATE: 03/13/2018 REASON FOR CONSULTATION: Stroke. HISTORY OF PRESENT ILLNESS: This is a 67-year-old man who was recently admitted to the hospital for stroke, comes in now for new onset right leg weakness. Apparently in February he had multiple infarcts thought to be embolic, was placed on Eliquis, which he states he takes as directed, and had a loop recorder inserted, and a transesophageal echo performed. I cannot find a BUDDY report, but apparently the loop was placed so most likely a BUDDY was negative. Initially, the patient had weakness of both lower extremities with his previous stroke, discharged home. He did not care for the way the rehabilitation was being done at home, so he went to the gym last week, felt like he needed to work out with a senior trainer and then , he started developing right-sided leg weakness, which is new. He denies any pain. Denies any injury, but since then he has fallen several times injuring himself with abrasions. Denies hitting his head. He feels now that his left leg, which was the weak one is better than the right. He states he takes his medications as directed. SOCIAL HISTORY: He is and lives with his . There is no abuse of substances or smoking, ex-smoker. Drinks maybe 4 or more times a week. DIAGNOSTIC DATA: Looking at his scans he had multiple strokes on his MRI in February. Carotid ultrasound was negative. Echo showed some mild changes with LVH, grade 1 diastolic dysfunction, but normal EF. His MRA [place] was negative. He has been back to Dr. Tong's office, he states recently. Current labs are reviewed, slight white count elevation of 11.2, creatinine 1.48. CK 732. Urine was negative. PHYSICAL EXAMINATION: VITAL SIGNS: His temperature is 98, pulse 66, respiratory rate 20, blood pressure 181/99, saturating at 97%. NECK: Supple. No appreciable bruits. HEART: Regular. NEUROLOGIC: He is awake, alert. He is fluent. Pupils reactive. Visual davis full. Face symmetrical. Tongue midline. No dysarthria or aphasia. Motor: Upper extremities normal. He can lift both legs antigravity, I do not see any significant leg lag. Right toe is questionably upgoing. He is at best 4/5 in both legs. I do not see one leg much weaker than the other. However, I did not get him up to ambulate him without the safety of PT. RADIOLOGIC DATA: He had an MRI of the brain to look at the body of the MRI of the brain performed; same diffusion imaging, no abnormalities. No acute infarct. In the white matter portion, small foci of restricted diffusion both james radiata. This is located in the deep white matter between the frontal and parietal lobes. The conclusion states small foci of restricted diffusion bilaterally in the james radiata characteristic of small white matter infarcts, but no acute hemorrhages, it states mild chronic white matter disease, and then states no evidence of cerebral cortical infarct or hemorrhage. It is very confusing. I tried to review the scan myself; however, at this point, it will not load. I am not sure if it has been downloaded appropriately, it may be too soon. IMPRESSION: If the patient has had a new stroke, I would say at that point in time he has failed Eliquis and would recommend that he be changed over to warfarin, possibly doing a Lovenox bridge. However, he does need more monitoring at that point in time with routine INRs, and I told him that his INR needs to at that point be between 2 and 3. Have PT see him, assess him. Monitor him on telemetry. He does have a loop recorder; I do not know if it can be checked while he is here. I would not repeat his other studies at this point. He has had everything completed. We will continue current care and hopefully discharge planning, but again, if in fact he has had new strokes as the MRI states, then he needs to be changed to warfarin. MD BOBBY Melgar/alina , 04:39 PM , 04:49 PM
--- NOTE | 2018-03-13 18:07 | MR ---
EXAM DATE: 03/13/2018 5:58 PM EST AGE/SEX: 67 years / Male INDICATIONS: . Abnormal Gait CLINICAL DATA: This is the patient's initial encounter. Patient reports that signs and symptoms have been present for 1 day and indicates a pain score of 0/10. MEDICAL/SURGICAL HISTORY: Carcinoma, prostatic. Radiation, Hydronephrosis, Stroke . TURP, Medt [employer] Linq Loop Recorder COMPARISON: No prior exams available for comparison. TECHNIQUE: Multiplanar, multisequence MRI of the thoracic spine was performed. FINDINGS: A couple millimeters of presumably degenerative retrolisthesis seen at C7/T1. There is a broad oracle technical developer ior protrusion and moderate bilateral facet osteoarthritis at this level with associated mild spinal and moderate bilateral foraminal stenosis. There is no fracture or subluxation from T1/T2 through T12/L1. Thoracic kyphosis is mildly exaggerate d. Vertebral bodies have normal height. All of the thoracic intervertebral discs are slightly desiccated. No significant loss of height. No l arge bulges or protrusions. No spinal stenosis. There is mild bilateral costovertebral and facet osteoarthritis at essentially throughout the thoraci c spine. There is reactive appearing marrow edema of the right pedicle and facet of T6. Mild right fo raminal stenosis at T5/T6 and T6/T7. Very mild left foraminal stenosis at T6/T7. CONCLUSION: 1. Degenerative changes at C7/T1 with associated mild spinal stenosis and moderate bilateral foramin al stenosis. 2. Mild disc and uncovertebral and facet osteoarthritis from T1/T2 through T12/L1. There is mild edson ateral foraminal stenosis at T6/T7 and mild right foraminal stenosis at T5/T6. Focal marrow edema of the right pedicle of T6, most likely reactive. A nondisplaced and/or stress fracture could appear sim ilar. Electronically signed by: Ck Proctor MD 03/13/2018 6:06 PM EST
--- NOTE | 2018-03-13 18:29 | MR ---
EXAM DATE: 03/13/2018 6:13 PM EST AGE/SEX: 67 years / Male INDICATIONS: . Abnormal gait CLINICAL DATA: This is the patient's initial encounter. Patient reports that signs and symptoms have been present for 1 day and indicates a pain score of 0/10. MEDICAL/SURGICAL HISTORY: Carcinoma, prostatic. Hydronephrosis, Radiation, stroke, HTN . TURP, Medtr[employer] Linq Loop recorder COMPARISON: POI, MR LUMBAR SPINE W/O CONTRAST, 02/11/2018. POI, US KIDNEY, BILATERAL, 03/02/2018 . . TECHNIQUE: Multiplanar, multisequence MRI of the lumbar spine was performed without contrast. Patie nt was scanned in a sitting position; neutral, flexion, and extension scans were performed in the sa gittal plane. FINDINGS: Lumbar spine alignment is within normal limits. Vertebral bodies have normal height. Conus terminus w ithin normal limits at L2. T12-L1: The disc is normal. Very mild bilateral facet osteoarthritis. No foraminal or spinal stenosi s. L1-L2: The disc is desiccated and has slight loss of height. There is diffuse bulging of the disc a nnulus and mild bilateral facet osteoarthritis. No significant foraminal or spinal stenosis. L2-L3: Disc height and hydration are within normal limits. Mild bilateral facet osteoarthritis. No foraminal or spinal stenosis. L3-L4: The disc is desiccated. No significant loss of height small, broad but especially left parac entral/foraminal/lateral disc protrusion is present and there is mild to moderate bilateral facet ost eoarthritis. There is mild narrowing of the left lateral recess without definite transiting nerve whitney t impingement. There is mild bilateral foraminal stenosis. L4-L5: The disc is desiccated and has mild to moderate loss of height. Reactive appearing endplate marrow edema. There is a small to moderate, broad/diffuse disc protrusion and a superimposed, small r ight paracentral inferior extrusion. There is mild to moderate narrowing of the right lateral recess and probably impinging on the transiting right L5 nerve root. Moderate bilateral facet osteoarthritis present. There is mild to moderate bilateral foraminal stenosis. L5-S1: The disc is desiccated. Minimal loss of height. There is a small, broad protrusion and moder ate bilateral facet osteoarthritis. No significant spinal stenosis. There is mild to moderate right a nd moderate left foraminal stenosis. Cysts and hydronephrosis/hydroureter again partially seen of both kidneys. Apparent distention of the urinary bladder currently as well. CONCLUSION: 1. Multilevel degenerative changes of the lumbar spine as and not significantly changed from the jeffrey dy one month ago. 2. Mild left lateral recess narrowing at L3/L4 without evidence of transiting nerve root impingement . 3. Mild to moderate right lateral recess narrowing at L4/L5 and probably impinging on the transiting right L5 nerve root. 4. Multilevel foraminal stenosis, mild at L3/L4, mild to moderate at L4/L5 and [id number] righ t, moderate left L5/S1. 5. Persistent hydronephrosis/hydroureter of both kidneys partially seen. Urinary bladder also appear s distended at the time of imaging. Electronically signed by: Ck Proctor MD 03/13/2018 6:28 PM EST
--- NOTE | 2018-03-13 22:35 | ECG ---
Date Performed: 03/13/2018 Time Performed: 09:45:47 PTAGE: 67 years EKG: SINUS BRADYCARDIA NONSPECIFIC T-WAVE ABNORMALITY BORDERLINE ECG PREVIOUS TRACING : 02/15/2018 18.26 Since the previous tracing, no significant change noted DOCTOR: Pradeep Ceballos Interpretating Date/Time 03/13/2018 22:33:21
[2018-03-14 06:57] LABS: Calcium 8.9 mg/dL (8.5-10.1); Carbon Dioxide 26.4 meq/L (21.0-32.0); Potassium 3.7 meq/L (3.5-5.1)
[2018-03-14 07:17] LABS: CKMB Percent 0.5 % (0.0-4.0); Creatine Kinase MB 2.4 ng/mL (0.5-3.6)
[2018-03-14] MEDS: amLODIPine 10 MG Tablet PO SCH (09:07)
--- NOTE | 2018-03-14 11:39 | P.PN ---
Subjective Interval history: sitting at edge of bed feels right leg is better pending PT eval. Physical Exam Vital signs: Vital Signs 03/13/18 12:42 03/13/18 13:30 03/13/18 14:30 Temperature Pulse Rate 62 74 70 Respiratory Rate 19 22 16 Blood Pressure 192/86 H 239/157 H 213/95 H Pulse Oximetry 99 98 99 03/13/18 15:33 03/13/18 16:00 03/13/18 16:50 Temperature 98 F Pulse Rate 67 66 61 Respiratory Rate 21 20 Blood Pressure 195/97 H 181/89 H 179/87 H Pulse Oximetry 98 97 03/13/18 16:51 03/13/18 16:52 03/13/18 16:53 Temperature Pulse Rate 69 69 61 Respiratory Rate Blood Pressure 204/100 H 204/102 H 179/87 H Pulse Oximetry 03/13/18 20:00 03/14/18 00:00 03/14/18 01:55 Temperature 98.2 F 98.4 F Pulse Rate 66 62 60 Respiratory Rate 18 Blood Pressure 179/85 H 156/85 H Pulse Oximetry 97 95 03/14/18 02:11 03/14/18 04:00 03/14/18 08:00 Temperature 98.2 F 98.4 F Pulse Rate 59 L 62 63 Respiratory Rate 20 Blood Pressure 158/84 H 182/88 H Pulse Oximetry 94 L 97 Intake & Output 03/13/18 03/14/18 03/14/18 18:59 06:59 18:59 Intake Total 1884 / 1884 Output Total 1500 / 1500 900 / 900 Balance -1500 / -1500 984 / 984 Weight 97.069 kg 214 kg Intake: IV 1000 / 1000 NS Inj 1,000 ML @ 70 mls/hr IV. 1000 / 1000 CONT .[id number] [facility] Rx#:[id number] Oral 884 / 884 Output: Urine 1500 / 1500 900 / 900 Other: # Voids 3 Date of Last Bowel Movement 03/13/18 - Constitutional no acute distress - Routine HEENT Exam Head: Present: normocephalic Eye: Present: EOMI, PERRL - Routine Neck Exam Present: supple - Routine Cardiovascular Exam Present: RRR, S1, S2 - Routine Neurological Exam Present: oriented X3, CN II-XII intact, moving all extremities mild right leg weakness but better than yesterday. Results - Labs CBC & Chem 7: 03/13/18 09:45 03/14/18 05:38 Laboratory Results - last 24 hr 03/13/18 03/13/18 03/13/18 12:43 16:43 22:13 Sodium Potassium Chloride Carbon Dioxide Anion Gap BUN Creatinine Estimated GFR POC Glucose 104 118 H Random Glucose Calcium Total Creatine Kinase CK-MB (CK-2) CK-MB (CK-2) % Urine Color Yellow Urine Clarity Clear Urine pH 6.0 Ur Specific [place] 1.008 Urine Protein Negative Urine Glucose (UA) Negative Urine Ketones Negative Urine Occult Blood Negative Urine Nitrate Negative Urine Bilirubin Negative Urine Urobilinogen Less than 2 Ur Leukocyte Esterase Negative Urine RBC 1 Urine WBC 1 Urine Mucus Few H Micro UA Comment Culture not ind Ur Microscopic Review Not Reportable Urine Culture Comments Culture not ind 03/14/18 03/14/18 03/14/18 05:38 05:38 07:17 Sodium 143 Potassium 3.7 Chloride 109 H Carbon Dioxide 26.4 Anion Gap 8 BUN 13 Creatinine 1.39 H Estimated GFR 51 L POC Glucose 107 Random Glucose 97 Calcium 8.9 Total Creatine Kinase 448 H CK-MB (CK-2) 2.4 CK-MB (CK-2) % 0.5 Urine Color Urine Clarity Urine pH Ur Specific [place] Urine Protein Urine Glucose (UA) Urine Ketones Urine Occult Blood Urine Nitrate Urine Bilirubin Urine Urobilinogen Ur Leukocyte Esterase Urine RBC Urine WBC Urine Mucus Micro UA Comment Ur Microscopic Review Urine Culture Comments - Imaging Impressions Lumbar Spine MRI 03/13/18 00:00 CONCLUSION: 1. Multilevel degenerative changes of the lumbar spine as and not significantly changed from the study one month ago. 2. Mild left lateral recess narrowing at L3/L4 without evidence of transiting nerve root impingement. 3. Mild to moderate right lateral recess narrowing at L4/L5 and probably impinging on the transiting right L5 nerve root. 4. Multilevel foraminal stenosis, mild at L3/L4, mild to moderate at L4/L5 and [id number] right, moderate left L5/S1. 5. Persistent hydronephrosis/hydroureter of both kidneys partially seen. Urinary bladder also appears distended at the time of imaging. Thoracic Spine MRI 03/13/18 00:00 CONCLUSION: 1. Degenerative changes at C7/T1 with associated mild spinal stenosis and moderate bilateral foraminal stenosis. 2. Mild disc and uncovertebral and facet osteoarthritis from T1/T2 through T12/ L1. There is mild bilateral foraminal stenosis at T6/T7 and mild right foraminal stenosis at T5/T6. Focal marrow edema of the right pedicle of T6, most likely reactive. A nondisplaced and/or stress fracture could appear similar. Head MRI 03/13/18 10:18 CONCLUSION: 1. Small foci of restricted diffusion bilaterally within the james radiata characteristic of small deep white matter infarcts. 2. No evidence of acute hemorrhage. 3. Mild chronic ischemic white matter disease with periventricular T2 hyperintensities. 4. No evidence of cerebral cortical infarct or hemorrhage. 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 d/w pt and Dr Brown.
[2018-03-14] MEDS ORDERED: hydrALAZINE 25 MG Tablet PO SCH ×2 (13:36→14:30)
--- NOTE | 2018-03-14 14:42 | P.PN ---
Subjective Interval history: feels great "like a new man" leg feels stronger no chest pains or shortness of breath sinus on exam Physical Exam Vital signs: Vital Signs 03/13/18 15:33 03/13/18 16:00 03/13/18 16:50 Temperature 98 F Pulse Rate 67 66 61 Respiratory Rate 21 20 Blood Pressure 195/97 H 181/89 H 179/87 H Pulse Oximetry 98 97 03/13/18 16:51 03/13/18 16:52 03/13/18 16:53 Temperature Pulse Rate 69 69 61 Respiratory Rate Blood Pressure 204/100 H 204/102 H 179/87 H Pulse Oximetry 03/13/18 20:00 03/14/18 00:00 03/14/18 01:55 Temperature 98.2 F 98.4 F Pulse Rate 66 62 60 Respiratory Rate 18 Blood Pressure 179/85 H 156/85 H Pulse Oximetry 97 95 03/14/18 02:11 03/14/18 04:00 03/14/18 08:00 Temperature 98.2 F 98.4 F Pulse Rate 59 L 62 63 Respiratory Rate 20 Blood Pressure 158/84 H 182/88 H Pulse Oximetry 94 L 97 03/14/18 12:00 03/14/18 12:07 03/14/18 12:09 Temperature 99.0 F Pulse Rate 63 64 55 L Respiratory Rate Blood Pressure 182/100 H 164/90 H 181/86 H Pulse Oximetry 96 99 99 Intake & Output 03/13/18 03/14/18 03/14/18 18:59 06:59 18:59 Intake Total 1884 / 1884 Output Total 1500 / 1500 900 / 900 Balance -1500 / -1500 984 / 984 Weight 97.069 kg 214 kg Intake: IV 1000 / 1000 NS Inj 1,000 ML @ 70 mls/hr IV. 1000 / 1000 CONT .[id number] [facility] Rx#:[id number] Oral 884 / 884 Output: Urine 1500 / 1500 900 / 900 Other: # Voids 3 Date of Last Bowel Movement 03/13/18 Narrative: Awake alert oriented x3 not in any form of distress HEENT exam anicteric sclerae pink palpebral conjunctivae Neck supple no JVD no bruit Chest lungs bilateral breath sounds equal no rales no wheezes Regular rhythm Abdomen is soft good bowel sounds no guarding Extremities no edema good peripheral pulses Neurologic exam ANO x3 cranial nerves grossly intact Manual motor test 5/5 in all extremities Grossly no sensory deficit, DTRs +1 on all extremities pateint up and ambulated around the bed independently without a walker Results - Labs CBC & Chem 7: 03/13/18 09:45 03/14/18 05:38 Laboratory Results - last 24 hr 03/13/18 03/13/18 03/14/18 16:43 22:13 05:38 Sodium Potassium Chloride Carbon Dioxide Anion Gap BUN Creatinine Estimated GFR POC Glucose 104 118 H Random Glucose Calcium Total Creatine Kinase 448 H CK-MB (CK-2) 2.4 CK-MB (CK-2) % 0.5 03/14/18 03/14/18 03/14/18 05:38 07:17 12:03 Sodium 143 Potassium 3.7 Chloride 109 H Carbon Dioxide 26.4 Anion Gap 8 BUN 13 Creatinine 1.39 H Estimated GFR 51 L POC Glucose 107 133 H Random Glucose 97 Calcium 8.9 Total Creatine Kinase CK-MB (CK-2) CK-MB (CK-2) % - Imaging Impressions Lumbar Spine MRI 03/13/18 00:00 CONCLUSION: 1. Multilevel degenerative changes of the lumbar spine as and not significantly changed from the study one month ago. 2. Mild left lateral recess narrowing at L3/L4 without evidence of transiting nerve root impingement. 3. Mild to moderate right lateral recess narrowing at L4/L5 and probably impinging on the transiting right L5 nerve root. 4. Multilevel foraminal stenosis, mild at L3/L4, mild to moderate at L4/L5 and [id number] right, moderate left L5/S1. 5. Persistent hydronephrosis/hydroureter of both kidneys partially seen. Urinary bladder also appears distended at the time of imaging. Thoracic Spine MRI 03/13/18 00:00 CONCLUSION: 1. Degenerative changes at C7/T1 with associated mild spinal stenosis and moderate bilateral foraminal stenosis. 2. Mild disc and uncovertebral and facet osteoarthritis from T1/T2 through T12/ L1. There is mild bilateral foraminal stenosis at T6/T7 and mild right foraminal stenosis at T5/T6. Focal marrow edema of the right pedicle of T6, most likely reactive. A nondisplaced and/or stress fracture could appear similar. Assessment and Plan - Plan 67-year-old male presenting with History of recent CVA multiple infarcts in February 2018 New acute CVA while on eliquis- with right LE weakness-IMProved - ambulated better today on exam - At that time presented with left lower extremity weakness which has since resolved -Now presenting with right lower extremity weakness and difficulty ambulating - discusssed and reviewed MRI/CT with Dr Donald - new acute infarct - DC Eliquis - start Xarelto 20 mg hs - states had a loop recorder done reportedly negative -CT of spines negative -We will get PT to evaluate. Advised patient to use a walker as needed for safety Hypertension- uncontrolled - elevated readings. -Twelve-lead EKG shows normal sinus rhythm no acute ST-T wave changes -Increase amlodipine to 10 mg daily today -Enalapril 10 mg twice a day - Increase Hydralazine 50 mg tid -Continue on Bystolic - Cardiology consult- known to Dr. Tong Chronic kidney insufficiency -Renal functions near baseline. - monitor on Xarelto Elevated creatinine kinase - 770- down to 300s - on gentle hydration Hypertriglyceridemia - Continue on fenofibrate We will hold off on statin for now with elevated CK History of depression continue on Abilify. Continue on home meds omeprazole, Flomax, finasteride DVT prophylaxis patient will be on Xarelto Patient on PPI CM consult for DC plannning- SNF vs [facility]
[2018-03-14] MEDS ORDERED: Rivaroxaban 20 MG Tablet PO SCH (14:45)
[2018-03-14] MEDS: Rivaroxaban 20 MG Tablet PO SCH (23:15)
[2018-03-15 08:43] LABS: Carbon Dioxide 25.4 meq/L (21.0-32.0); Potassium 3.8 meq/L (3.5-5.1)
[2018-03-15] MEDS ORDERED: Rivaroxaban 20 MG Tablet PO SCH (09:00)
[2018-03-15] MEDS: hydrALAZINE 25 MG Tablet PO SCH ×3 (09:46→17:51)
[2018-03-15] MEDS: amLODIPine 10 MG Tablet PO SCH (09:46)
--- NOTE | 2018-03-15 10:10 | P.CONCA ---
History of Present Illness Service: Cardiology Consult date: 03/15/18 Requesting Physician: Eder Brown Reason for Consult: New CVA on Eliqis Primary Care Provider: Anamaria Guerra MD Chief Complaint: Right lower extremity weakness "giving out" frequent fall History of Present Illness: The patient is a 67-year-old male known to our practice with a past medical history of recent CVA started on Eliquis 5 mg twice a day, tobacco use and hypertension. A BUDDY was completed in February 2018 was negative for thromboembolic source. Carotid ultrasound completed and was negative for hemodynamically significant carotid stenosis. A loop recorder was inserted following CVA in February 2018. Since discharge, the patient states that he has had recurrent falls. However, he was prompted to come in when his "legs just gave out." He denies loss of consciousness. MRI revealed new CVA. He states that his been compliant with his medications. His blood pressure was elevated on admission. He does not check his blood pressure at home. This morning, the patient denies progressive weakness. He denies shortness of breath, palpitations, chest pain, lightheadedness or dizziness. Pending loop download. Follow-up from his last admission on March 01, 2018, he was referred to Dr. Hilton for hematologic workup to evaluate for genetic predisposition for hypercoagulability. Review of Systems All other systems reviewed negative except as stated in HPI PMFSH - History History Provided By: Patient - Medical History Medical History: Medical History (Last Reviewed 03/15/18 @ 08:39 by Graciela Ratliff) Decreased renal function Depression Elevated cholesterol GERD (gastroesophageal reflux disease) Hydronephrosis Hypertension - Surgical History Surgical History: Surgical History (Last Reviewed 03/15/18 @ 08:39 by Graciela Ratliff) History of prostate surgery Hx of transurethral resection of prostate - Family History Family History: Family History (Last Reviewed 03/15/18 @ 08:39 by Graciela Ratliff) Other Hypertension - Tobacco History Second Hand Smoke Exposure: Yes Tobacco Use In Past 30 Days: No Smoking Status: Former smoker Tobacco Type: Cigarettes - Alcohol History How Often Do You Have a Drink Containing Alcohol: 4 or more times a week - Substance Use History Substance History: No History of Abuse - Travel History Recent Travel in the [place] Within the Last 8 Weeks: No Recent Travel Out of the Country Within the Last 8 Weeks: No - Immunization History Tetanus Immunization: >5 Years Hx Influenza Vaccine This Season: Yes Medications and Allergies Active Medications: Active Medications Amlodipine Besylate (Norvasc) 10 mg PO DAILY [facility] Last Admin: 03/15/18 09:46 Dose: 10 mg Enalapril Maleate (Vasotec) 10 mg PO BID [facility] Last Admin: 03/15/18 09:46 Dose: 10 mg Hydralazine HCl (Apresoline) 75 mg PO TID [facility] Last Admin: 03/15/18 09:46 Dose: 75 mg Nebivolol (Bystolic) 10 mg PO DAILY [facility] Last Admin: 03/15/18 09:46 Dose: 10 mg Rivaroxaban (Xarelto) 20 mg PO Q24H [facility] Last Admin: 03/14/18 23:15 Dose: 20 mg Sodium Chloride (Ns Flush) 2 ml IV.FLUSH PRN PRN PRN Reason: FLUSH AFTER USING IV ACCESS Last Admin: 03/15/18 09:47 Dose: 2 ml Allergies Allergy/AdvReac Type Severity Reaction Status Date / Time penicillin G Allergy Severe Hives Verified 02/15/18 22:43 Home Medications Medication Instructions Recorded Confirmed Type aripiprazole 5 mg PO DAILY 01/28/18 03/13/18 History duloxetine 60 mg PO DAILY 01/28/18 03/13/18 History fenofibrate nanocrystallized 48 mg PO DAILY 01/28/18 03/13/18 History finasteride 5 mg PO DAILY 01/28/18 03/13/18 History montelukast 10 mg PO QPM 01/28/18 03/13/18 History nebivolol [Bystolic] 10 mg PO DAILY 01/28/18 03/13/18 History omeprazole 20 mg PO DAILY 01/28/18 03/13/18 History ramipril 10 mg PO DAILY 01/28/18 03/13/18 History tamsulosin 0.4 mg PO DAILY 01/28/18 03/13/18 History Exam Vital signs: Vital Signs 03/14/18 12:00 03/14/18 12:07 03/14/18 12:09 Temperature 99.0 F Pulse Rate 63 64 55 L Respiratory Rate Blood Pressure 182/100 H 164/90 H 181/86 H Pulse Oximetry 96 99 99 03/14/18 16:00 03/14/18 19:30 03/14/18 20:00 Temperature 98.6 F 97.5 F L Pulse Rate 58 L 66 58 L Respiratory Rate 20 18 Blood Pressure 176/92 H 182/90 H Pulse Oximetry 94 L 98 03/15/18 00:00 03/15/18 04:00 03/15/18 08:00 Temperature 97.3 F L 97.8 F 98.0 F Pulse Rate 51 L 64 53 L Respiratory Rate 18 18 20 Blood Pressure 166/85 H 171/80 H 151/84 H Pulse Oximetry 95 95 97 Intake & Output 03/14/18 03/15/18 03/15/18 18:59 06:59 18:59 Intake Total 620 / 620 360 / 360 Output Total 650 / 650 Balance 608 / 608 -290 / -290 Weight 214 kg Intake: Oral 620 / 620 360 / 360 Output: Urine 650 / 650 Stool 4 / 4 Other: # Voids 2 Date of Last Bowel Movement 03/14/18 03/14/18 # Bowel Movements 1 - Constitutional no acute distress - Routine HEENT Exam Head: Present: normocephalic, atraumatic Eye: Present: EOMI ENT: Present: mucous membranes moist - Routine Neck Exam Present: supple, full ROM - Routine Respiratory Exam Present: CTA bilaterally - Routine Cardiovascular Exam Present: RRR Comments: Loop recorder - Routine Abdominal Exam Present: soft, normoactive bowel sounds - Routine Extremities Exam Comments: No obvious weakness or trauma - Routine Skin Exam Present: intact - Routine Neurological Exam Present: alert, oriented X3 Results 03/13/18 09:45 03/15/18 07:40 Cardiac Enzymes 03/13/18 03/14/18 Range/Units 09:45 05:38 AST 43 H (15-37) U/L CK-MB (CK-2) 3.7 H 2.4 (0.5-3.6) ng/mL Troponin I Less than 0.02 L (0.02-0.05) ng/mL Coagulation 03/13/18 Range/Units 09:45 PT 10.6 (9.8-11.6) sec APTT 28.7 (23.4-31.7) sec CBC 03/13/18 Range/Units 09:45 WBC 11.2 H (4.0-11.0) th/mm3 RBC 4.82 (4.50-5.90) mil/mm3 Hgb 15.7 (13.0-17.0) gm/dL Hct 45.0 (39.0-51.0) % Plt Count 207 (150-450) th/mm3 Neut # (Auto) 8.9 H (1.8-7.7) th/mm3 Lymph # (Auto) 1.2 (1.0-4.8) th/mm3 [place] # (Auto) 0.8 (0.0-0.9) th/mm3 Eos # (Auto) 0.2 (0.0-0.4) th/mm3 Baso # (Auto) 0.1 (0.0-0.2) th/mm3 Comprehensive Metabolic Panel 03/13/18 03/14/18 03/15/18 Range/Units 09:45 05:38 07:40 Sodium 140 143 142 (136-145) meq/L Potassium 4.0 3.7 3.8 (3.5-5.1) meq/L Chloride 104 109 H 108 H (98-107) meq/L Carbon Dioxide 27.5 26.4 25.4 (21.0-32.0) meq/L BUN 16 13 13 (7-18) mg/dL Creatinine 1.48 H 1.39 H 1.38 H (0.60-1.30) mg/dL Calcium 9.0 8.9 9.0 (8.5-10.1) mg/dL AST 43 H (15-37) U/L ALT 43 (12-78) U/L Alkaline Phosphatase 63 (45-117) U/L Total Protein 7.8 (6.4-8.2) g/dL Albumin 4.1 (3.4-5.0) g/dL Intake and Output 03/14/18 03/15/18 03/15/18 22:59 06:59 14:59 Intake Total 620 / 620 360 / 360 Output Total 650 / 650 Balance 608 / 608 -290 / -290 Intake: Oral 620 / 620 360 / 360 Output: Urine 650 / 650 Stool 4 / 4 Other: # Voids 2 Date of Last Bowel Movement 03/14/18 03/14/18 # Bowel Movements 1 Weight 214 kg - Imaging and Cardiology Imaging: Impressions Lumbar Spine MRI 03/13/18 00:00 CONCLUSION: 1. Multilevel degenerative changes of the lumbar spine as and not significantly changed from the study one month ago. 2. Mild left lateral recess narrowing at L3/L4 without evidence of transiting nerve root impingement. 3. Mild to moderate right lateral recess narrowing at L4/L5 and probably impinging on the transiting right L5 nerve root. 4. Multilevel foraminal stenosis, mild at L3/L4, mild to moderate at L4/L5 and [id number] right, moderate left L5/S1. 5. Persistent hydronephrosis/hydroureter of both kidneys partially seen. Urinary bladder also appears distended at the time of imaging. Thoracic Spine MRI 03/13/18 00:00 CONCLUSION: 1. Degenerative changes at C7/T1 with associated mild spinal stenosis and moderate bilateral foraminal stenosis. 2. Mild disc and uncovertebral and facet osteoarthritis from T1/T2 through T12/ L1. There is mild bilateral foraminal stenosis at T6/T7 and mild right foraminal stenosis at T5/T6. Focal marrow edema of the right pedicle of T6, most likely reactive. A nondisplaced and/or stress fracture could appear similar. Head CT 03/13/18 09:40 CONCLUSION: 1. Subacute lacunar infarct right basal ganglia 2. No evidence of acute infarct, hemorrhage, mass or edema. 3. Chronic white matter ischemic changes with central volume loss. . Head MRI 03/13/18 10:18 CONCLUSION: 1. Small foci of restricted diffusion bilaterally within the james radiata characteristic of small deep white matter infarcts. 2. No evidence of acute hemorrhage. 3. Mild chronic ischemic white matter disease with periventricular T2 hyperintensities. 4. No evidence of cerebral cortical infarct or hemorrhage. EKG interpretations - Dysrhythmias Sinus rhythms and dysrhythmias: sinus rhythm Assessment and Plan - Plan 1. Recurrent MRI confirmed CVA while taking Eliquis. February 2018 BUDDY negative for thromboembolic source. Pending loop recorder interrogation. EKG negative for atrial fibrillation since admission. 2. Hypertensive emergency 3. Acute kidney injury 4. Hypertriglyceridemia. LDL unmeasurable 5. Tobacco use history Plan: Add aspirin 81 mg Add statin and will add Vascepa outpatient Blood pressure improving. Will follow up blood pressure after he received morning meds. May need to make further adjustment. Recommend hypercoagulable workup outpatient. The patient was referred to Dr. Hilton at his last office appointment. The patient was seen and evaluated by Dr. Tong who completed [id number] encounter and physical exam and participated in evaluation and management.
--- NOTE | 2018-03-15 11:19 | P.PN ---
Subjective Interval history: Follow-up on patient with CVA. Patient seen and examined. Patient states he feels good. He continues to have some weakness in the right lower extremity but reports it is much improved. He denies any headache, dizziness, lightheadedness or vision changes. Denies any cough, chest pain or shortness of breath. Denies any nausea, vomiting or abdominal pain. He does not want to go back to [facility] facility as he did not feel that it was vigorous enough and he did better on his own going to the gym daily. Physical Exam Vital signs: Vital Signs 03/14/18 12:00 03/14/18 12:07 03/14/18 12:09 Temperature 99.0 F Pulse Rate 63 64 55 L Respiratory Rate Blood Pressure 182/100 H 164/90 H 181/86 H Pulse Oximetry 96 99 99 03/14/18 16:00 03/14/18 19:30 03/14/18 20:00 Temperature 98.6 F 97.5 F L Pulse Rate 58 L 66 58 L Respiratory Rate 20 18 Blood Pressure 176/92 H 182/90 H Pulse Oximetry 94 L 98 03/15/18 00:00 03/15/18 04:00 03/15/18 08:00 Temperature 97.3 F L 97.8 F 98.0 F Pulse Rate 51 L 64 53 L Respiratory Rate 18 18 20 Blood Pressure 166/85 H 171/80 H 151/84 H Pulse Oximetry 95 95 97 Intake & Output 03/14/18 03/15/18 03/15/18 18:59 06:59 18:59 Intake Total 620 / 620 360 / 360 Output Total 650 / 650 Balance 608 / 608 -290 / -290 Weight 214 kg Intake: Oral 620 / 620 360 / 360 Output: Urine / 650 / 650 Stool 4 / 4 Other: # Voids 2 Date of Last Bowel Movement 03/14/18 03/14/18 # Bowel Movements 1 Narrative: GENERAL: Well-developed well-nourished male patient, in no acute distress. Awake and alert. SKIN: Warm and dry. HEENT: Atraumatic. Normocephalic. Pupils equal and round. No scleral icterus. No injection or drainage. No nasal bleeding or discharge. Mucous membranes pink and moist. NECK: Trachea midline. No JVD. CARDIOVASCULAR: Regular rate and rhythm. RESPIRATORY: No accessory muscle use. Clear to auscultation. Breath sounds equal bilaterally. GASTROINTESTINAL: Abdomen soft, non-tender, nondistended. +BS. +Ventral hernia. MUSCULOSKELETAL: Extremities without clubbing, cyanosis, or edema. No obvious deformities. NEUROLOGICAL: Awake and alert. No obvious cranial nerve deficits. Motor grossly within normal limits. Able to move all extremities spontaneously. Normal speech. PSYCHIATRIC: Appropriate mood and affect; insight and judgment normal. Results - Labs CBC & Chem 7: 03/13/18 09:45 03/15/18 07:40 Laboratory Results - last 24 hr 03/14/18 03/14/18 03/14/18 12:03 16:20 20:37 Sodium Potassium Chloride Carbon Dioxide Anion Gap BUN Creatinine Estimated GFR POC Glucose 133 H 109 119 H Random Glucose Calcium 03/15/18 03/15/18 07:40 08:48 Sodium 142 Potassium 3.8 Chloride 108 H Carbon Dioxide 25.4 Anion Gap 9 BUN 13 Creatinine 1.38 H Estimated GFR 51 L POC Glucose 105 Random Glucose 104 Calcium 9.0 Assessment and Plan - Plan 67-year-old male presenting with History of recent CVA multiple infarcts in February 2018 New acute CVA while on eliquis- with right LE weakness-improved -Now presenting with right lower extremity weakness and difficulty ambulating, improving -continue with PT, recommending rehab. OT eval/rec. Possible Velazquez candidate. -Neurology following, appreciate assistance. per Dr. Brown, discussed and reviewed MRI/CT with Dr Donald - new acute infarct - DC Eliquis- started on Xarelto 20 mg hs -states had a loop recorder done reportedly negative Hypertension- uncontrolled - elevated readings. Twelve-lead EKG shows normal sinus rhythm no acute ST-T wave changes -Continue on Bystolic 10mg daily, Norvasc 10mg daily and Enalapril 10mg BID. Increase Hydralazine to 75mg TID. HCTZ 12.5mg added by Cardiology. -Cardiology consulted, appreciate assistance. Started on ASA 81mg daily. Plan to add statin but CK and AST elevated. Plan to add Vascepa as outpatient. Patient referred to Dr. Hilton for hypercoagulable workup as outpatient Chronic kidney insufficiency -Renal functions near baseline. -monitor on Xarelto Elevated creatinine kinase -CK trending down -encourage po fluid intake Hypertriglyceridemia -Continue on fenofibrate -We will hold off on statin for now with elevated CK History of depression continue on Abilify. Continue on home meds omeprazole, finasteride DVT prophylaxis patient will be on Xarelto Patient on PPI Discussed Condition With: patient, nursing staff, Dr. Nunez Discharge Planning: Possible discharge to [place] in next few days. Discharge pending Cardiology clearance.
[2018-03-15] MEDS: Finasteride 5 MG Tablet PO SCH (17:55)
[2018-03-15] MEDS: Rivaroxaban 20 MG Tablet PO SCH (22:48)
--- NOTE | 2018-03-16 07:21 | P.PN ---
Subjective Interval history: Follow-up on patient with CVA. Patient seen and examined. Patient says that Salma told him he didn't qualify for [facility]. Discussed with Salma who states patient said he did not want to go to rehab. Patient denies any complaints. He denies any headache, dizziness, vision changes, N/V, chest pain or shortness of breath. Discussed with nursing staff, no adverse events noted overnight. Physical Exam Vital signs: Vital Signs 03/15/18 08:00 03/15/18 09:00 03/15/18 12:00 Temperature 98.0 F 98.6 F Pulse Rate 53 L 60 53 L Respiratory Rate 20 20 Blood Pressure 151/84 H 159/83 H Pulse Oximetry 97 96 03/15/18 16:00 03/15/18 20:00 03/16/18 00:00 Temperature 98.5 F 97.8 F 98.1 F Pulse Rate 66 55 L 57 L Respiratory Rate 20 20 20 Blood Pressure 164/78 H 155/83 H 158/89 H Pulse Oximetry 95 96 98 03/16/18 04:00 Temperature 98.5 F Pulse Rate 56 L Respiratory Rate 20 Blood Pressure 148/85 H Pulse Oximetry 96 Intake & Output 03/15/18 03/16/18 03/16/18 18:59 06:59 18:59 Weight 214 kg Other: # Voids 2 Date of Last Bowel Movement 03/14/18 03/16/18 # Bowel Movements 1 Narrative: GENERAL: Well-developed well-nourished male patient, in no acute distress. Awake and alert. Appears comfortable sitting in bedside chair. SKIN: Warm and dry. HEENT: Atraumatic. Normocephalic. Pupils equal and round. No scleral icterus. No injection or drainage. No nasal bleeding or discharge. Mucous membranes pink and moist. NECK: Trachea midline. CARDIOVASCULAR: Regular rate and rhythm. RESPIRATORY: No accessory muscle use. Clear to auscultation. Breath sounds equal bilaterally. GASTROINTESTINAL: Abdomen soft, non-tender, nondistended. +BS. +Ventral hernia. MUSCULOSKELETAL: Extremities without clubbing, cyanosis, or edema. No obvious deformities. NEUROLOGICAL: Awake and alert. No obvious cranial nerve deficits. Motor grossly within normal limits. Able to move all extremities spontaneously. Normal speech. PSYCHIATRIC: Appropriate mood and affect; insight and judgment appears normal. Results - Labs CBC & Chem 7: 03/13/18 09:45 03/16/18 06:37 Laboratory Results - last 24 hr 03/15/18 03/15/18 03/15/18 07:40 08:48 17:53 Sodium 142 Potassium 3.8 Chloride 108 H Carbon Dioxide 25.4 Anion Gap 9 BUN 13 Creatinine 1.38 H Estimated GFR 51 L POC Glucose 105 135 H Random Glucose 104 Calcium 9.0 Assessment and Plan - Plan 67-year-old male presenting with History of recent CVA multiple infarcts in February 2018 New acute CVA while on eliquis- with right LE weakness-improved -Now presenting with right lower extremity weakness and difficulty ambulating, improving -continue with PT, recommending rehab. OT eval/rec. Possible [facility] candidate. -Neurology following, appreciate assistance. per Dr. Brown, discussed and reviewed MRI/CT with Dr Donald - new acute infarct - DC Eliquis- started on Xarelto 20 mg hs -states had a loop recorder done reportedly negative -Hematology consulted by Cardiology, evaluated by Dr. Breen who recommends For long-term anticoagulation, would recommend warfarin in the outpatient setting. This will need to be used with a Lovenox bridge. Hypertension- uncontrolled - elevated readings. Twelve-lead EKG shows normal sinus rhythm no acute ST-T wave changes -Continue on Bystolic 10mg daily, Norvasc 10mg daily and Enalapril 10mg BID. Increased Hydralazine to 75mg TID. HCTZ 12.5mg added by Cardiology - creatinine now up from 1.38 to 1.45. -Cardiology consulted, appreciate assistance. Started on ASA 81mg daily. Plan to add statin but CK and AST elevated. Plan to add Vascepa as outpatient. Patient referred to Dr. Hilton for hypercoagulable workup as outpatient Chronic kidney insufficiency -Renal functions near baseline but cr did bump from 1.38 to 1.45. BUN 20. Possible dehydration. Encourage po fluid intake. -monitor on Xarelto -repeat BMP in am Elevated creatinine kinase -CK trending down -encourage po fluid intake Hypertriglyceridemia -Continue on fenofibrate -We will hold off on statin for now with elevated CK Hyperglycemia BS 133, 135 -HgbA1c ordered/pending History of depression continue on Abilify. Continue on home meds omeprazole, finasteride and tamsulosin DVT prophylaxis patient will be on Xarelto Patient on PPI Discussed Condition With: patient, nursing staff, Dr. Nunez Discharge Planning: Possible discharge to [facility] in next few days. Discharge pending Cardiology clearance.
[2018-03-16 07:48] LABS: Calcium 9.3 mg/dL (8.5-10.1); Carbon Dioxide 26.9 meq/L (21.0-32.0); Potassium 3.8 meq/L (3.5-5.1)
[2018-03-16] MEDS: hydrALAZINE 25 MG Tablet PO SCH ×3 (08:22→18:13)
[2018-03-16] MEDS: amLODIPine 10 MG Tablet PO SCH (08:23)
[2018-03-16] MEDS: Finasteride 5 MG Tablet PO SCH (08:24)
--- NOTE | 2018-03-16 08:43 | MB ---
cc: Kassidy Breen MD DATE: 03/16/2018 CHIEF COMPLAINT: 1. Recurrent stroke while on Eliquis. 2. Consideration of hypercoagulable workup. HISTORY OF PRESENT ILLNESS: Mr. Btaeman is a 67-year-old man with a history of stroke who was admitted to the hospital on 03/13/2018 with new-onset right leg weakness. In 02/2018, he was hospitalized with multiple infarcts which were thought to be embolic in nature. At that time, he was placed on apixaban therapy. He reports that he has been on the apixaban twice a day. Has not missed any doses and is taking it as directed. The patient reports that he was under the care of Dr. Tong and had a loop recorder placed, which did not detect any arrhythmias. He started developing new right leg weakness, which prompted his admission to this hospital. While here, he has been evaluated by the neurology team. CT scan of the head with subacute lacunar infarct in the right basal ganglia. No evidence of acute infarct, hemorrhage, mass or edema. Chronic white matter ischemic changes with central volume loss. Thoracic spine MRI with degenerative changes at C7-T1. Lumbar spine MRI with multilevel degenerative changes and stenosis. Head MRI with small foci of restricted diffusion bilaterally, characteristic of small deep white matter infarcts. PAST MEDICAL HISTORY: Depression, chronic kidney disease, acid reflux, hydronephrosis, hypertension. PAST SURGICAL HISTORY: History of prostate surgery due to prostate cancer. This was under the direction of Dr. Jacobson. FAMILY HISTORY: No known family history of malignancy. SOCIAL HISTORY: He quit smoking last month when he was initially diagnosed with his stroke. Prior to that, he had been a heavy smoker. He drinks 3 mixed drinks of whiskey every night. HOSPITAL MEDICATIONS: Include: 1. Amlodipine. 2. Aspirin. 3. Enalapril. 4. Finasteride. 5. Hydralazine. 6. Hydrochlorothiazide. 7. Nebivolol. 8. Xarelto. 9. Tamsulosin. PHYSICAL EXAMINATION: GENERAL: Well-developed, well-nourished man in no distress. HEENT: Head is normocephalic, atraumatic. Eyes: PERRLA. EOMI. NECK: Supple. No palpable lymphadenopathy. CARDIOVASCULAR: Regular rate and rhythm. No murmurs. RESPIRATORY: Clear to auscultation bilaterally. EXTREMITIES: No edema. NEUROLOGIC: Grossly nonfocal. PSYCHIATRIC: Appropriate mood and affect. LABORATORY STUDIES: White blood cell count of 11.2, hemoglobin 15.7, platelet count 207,000 with differential with elevated absolute neutrophil count. Coagulation studies within normal limits. Creatinine 1.38, total bilirubin within normal limits. AST slightly elevated at 43 and ALT is within normal limits at 43. ASSESSMENT AND PLAN: 1. Recurrent cerebrovascular accident while on Eliquis. Neurology team is following. For long-term anticoagulation, would recommend warfarin in the outpatient setting. This will need to be used with a Lovenox bridge. 2. Hypercoagulable workup. Have placed these orders and will follow them up. MD ISAAC Puente/michael , 07:29 AM , 07:36 AM
--- NOTE | 2018-03-16 14:49 | P.PNCA ---
Subjective Interval history: Patient sitting on edge of bed, just finished working with PT. is present in room. He denies any complaints. No TIA like symptoms, no chest pain or SOB. BP are better today. Medications and Allergies Active Medications: Active Medications Amlodipine Besylate (Norvasc) 10 mg PO DAILY [facility] Last Admin: 03/16/18 08:23 Dose: 10 mg Aspirin (Aspirin Chew) 81 mg PO DAILY [facility] Last Admin: 03/16/18 08:22 Dose: 81 mg Atorvastatin Calcium (Lipitor) 40 mg PO DAILY [facility] Last Admin: 03/15/18 13:07 Dose: Not Given Enalapril Maleate (Vasotec) 10 mg PO BID [facility] Last Admin: 03/16/18 08:24 Dose: 10 mg Finasteride (Proscar) 5 mg PO DAILY [facility] Last Admin: 03/16/18 08:24 Dose: 5 mg Hydralazine HCl (Apresoline) 75 mg PO TID [facility] Last Admin: 03/16/18 08:22 Dose: 75 mg Hydrochlorothiazide (Microzide) 12.5 mg PO DAILY [facility] Last Admin: 03/16/18 08:23 Dose: 12.5 mg Nebivolol (Bystolic) 10 mg PO DAILY [facility] Last Admin: 03/16/18 08:21 Dose: 10 mg Rivaroxaban (Xarelto) 20 mg PO Q24H [facility] Last Admin: 03/15/18 22:48 Dose: 20 mg Sodium Chloride (Ns Flush) 2 ml IV.FLUSH PRN PRN PRN Reason: FLUSH AFTER USING IV ACCESS Last Admin: 03/15/18 09:47 Dose: 2 ml Tamsulosin HCl (Flomax) 0.4 mg PO DAILY [facility] Last Admin: 03/16/18 08:23 Dose: 0.4 mg Allergies Allergy/AdvReac Type Severity Reaction Status Date / Time penicillin G Allergy Severe Hives Verified 02/15/18 22:43 Home Medications Medication Instructions Recorded Confirmed Type aripiprazole 5 mg PO DAILY 01/28/18 03/13/18 History duloxetine 60 mg PO DAILY 01/28/18 03/13/18 History fenofibrate nanocrystallized 48 mg PO DAILY 01/28/18 03/13/18 History finasteride 5 mg PO DAILY 01/28/18 03/13/18 History montelukast 10 mg PO QPM 01/28/18 03/13/18 History nebivolol [Bystolic] 10 mg PO DAILY 01/28/18 03/13/18 History omeprazole 20 mg PO DAILY 01/28/18 03/13/18 History ramipril 10 mg PO DAILY 01/28/18 03/13/18 History tamsulosin 0.4 mg PO DAILY 01/28/18 03/13/18 History Physical Exam Vital signs: Vital Signs 03/15/18 16:00 03/15/18 20:00 03/16/18 00:00 Temperature 98.5 F 97.8 F 98.1 F Pulse Rate 66 55 L 57 L Respiratory Rate 20 20 20 Blood Pressure 164/78 H 155/83 H 158/89 H Pulse Oximetry 95 96 98 03/16/18 04:00 03/16/18 08:00 03/16/18 12:00 Temperature 98.5 F 98.6 F 98.3 F Pulse Rate 56 L 56 L 55 L Respiratory Rate 20 20 20 Blood Pressure 148/85 H 149/79 H 151/76 H Pulse Oximetry 96 99 96 Intake & Output 03/15/18 03/16/18 03/16/18 18:59 06:59 18:59 Weight 214 kg 97 kg Other: # Voids 2 Date of Last Bowel Movement 03/14/18 03/16/18 # Bowel Movements 1 - Constitutional no acute distress - Routine HEENT Exam Head: Present: normocephalic, atraumatic Eye: Present: EOMI, PERRL, normal accommodation ENT: Present: mucous membranes moist - Routine Neck Exam Present: supple - Routine Respiratory Exam Present: CTA bilaterally - Routine Cardiovascular Exam Present: RRR, bradycardia - Routine Abdominal Exam Present: soft - Routine Skin Exam Present: intact - Routine Neurological Exam Present: alert, oriented X3 - Detailed Neurological Exam: Coma Scale Eye Opening: Spontaneous Verbal Response: Oriented Motor Response: Obey commands Karuna Coma Scale Total: 15 - Routine Psychiatric Exam Present: normal affect Results 03/13/18 09:45 03/16/18 06:37 Comprehensive Metabolic Panel 03/15/18 03/16/18 Range/Units 07:40 06:37 Sodium 142 140 (136-145) meq/L Potassium 3.8 3.8 (3.5-5.1) meq/L Chloride 108 H 104 (98-107) meq/L Carbon Dioxide 25.4 26.9 (21.0-32.0) meq/L BUN 13 20 H (7-18) mg/dL Creatinine 1.38 H 1.45 H (0.60-1.30) mg/dL Calcium 9.0 9.3 (8.5-10.1) mg/dL Intake and Output 03/15/18 03/16/18 03/16/18 22:59 06:59 14:59 Other: # Voids 2 Date of Last Bowel Movement 03/14/18 03/16/18 # Bowel Movements 1 Weight 214 kg 97 kg Patient Weight 03/17/18 06:59 Weight 97 kg Assessment and Plan - Plan Assessment Recurrent MRI confirmed CVA while taking Eliquis. February 2018 BUDDY negative for thromboembolic source. Pending loop recorder interrogation. EKG negative for atrial fibrillation since admission. Hypertensive emergency Acute kidney injury Hypertriglyceridemia. LDL unmeasurable Tobacco use history Plan: Now on Xarelto and aspirin. Will plan to Add statin and will add Vascepa outpatient Blood pressure improved Hematology has been consulted. Hypercoagulable workup in progress. [facility] is [facility], he is stable from a cardiac standpoint. The patient was seen and evaluated by Dr. Tong who completed [id number] encounter and physical exam and participated in evaluation and management. Code Status: Full Code Discussed Condition With: Dr. Tong,
[2018-03-16 20:08] LABS: Hemoglobin A1c 5.3 % (4.3-6.0)
[2018-03-16] MEDS: Rivaroxaban 20 MG Tablet PO SCH (20:53)
[2018-03-17 08:13] LABS: Calcium 9.2 mg/dL (8.5-10.1); Carbon Dioxide 22.6 meq/L (21.0-32.0); Potassium 3.7 meq/L (3.5-5.1)
[2018-03-17] MEDS: hydrALAZINE 25 MG Tablet PO SCH (09:06)
[2018-03-17] MEDS: amLODIPine 10 MG Tablet PO SCH (09:07)
[2018-03-17] MEDS: Finasteride 5 MG Tablet PO SCH (09:08)
--- NOTE | 2018-03-17 11:43 | P.NPEVAL ---
Patient History - Record/History Review Reason for Referral: The patient is a 67 year old right handed man s/p embolic CVA in February of 2018. This patient presents with a history of frequent falling. Head CT showed subacute lacunar infarction in the right basal ganglia and SVID. He is referred for baseline neurobehavioral status examination to assess cognitive, behavioral and emotional aspects of the injury and to provide treatment recommendations. PMFSH - History History Provided By: Patient - Medical History Medical History: Medical History (Last Reviewed 03/17/18 @ 08:31 by Sharad Pulido) Decreased renal function Depression Elevated cholesterol GERD (gastroesophageal reflux disease) Hydronephrosis Hypertension - Surgical History Surgical History: Surgical History (Last Reviewed 03/17/18 @ 08:31 by Sharad Pulido) History of prostate surgery Hx of transurethral resection of prostate - Family History Family History: Family History (Last Reviewed 03/15/18 @ 08:39 by Graciela Ratliff) Other Hypertension - Tobacco History Second Hand Smoke Exposure: Yes Tobacco Use In Past 30 Days: No Smoking Status: Former smoker Tobacco Type: Cigarettes - Alcohol History How Often Do You Have a Drink Containing Alcohol: 4 or more times a week - Substance Use History Substance History: No History of Abuse - Travel History Recent Travel in the [place] Within the Last 8 Weeks: No Recent Travel Out of the Country Within the Last 8 Weeks: No - Immunization History Tetanus Immunization: >5 Years Hx Influenza Vaccine This Season: Yes Medications Active Medications Amlodipine Besylate (Norvasc) 10 mg PO DAILY [facility] Last Admin: 03/17/18 09:07 Dose: 10 mg Aspirin (Aspirin Chew) 81 mg PO DAILY [facility] Last Admin: 03/17/18 09:07 Dose: 81 mg Atorvastatin Calcium (Lipitor) 40 mg PO DAILY [facility] Last Admin: 03/15/18 13:07 Dose: Not Given Enalapril Maleate (Vasotec) 10 mg PO BID [facility] Last Admin: 03/17/18 09:08 Dose: 10 mg Finasteride (Proscar) 5 mg PO DAILY [facility] Last Admin: 03/17/18 09:08 Dose: 5 mg Hydralazine HCl (Apresoline) 75 mg PO TID [facility] Last Admin: 03/17/18 09:06 Dose: 75 mg Hydrochlorothiazide (Microzide) 12.5 mg PO DAILY [facility] Last Admin: 03/17/18 09:07 Dose: 12.5 mg Nebivolol (Bystolic) 10 mg PO DAILY [facility] Last Admin: 03/17/18 09:07 Dose: 10 mg Rivaroxaban (Xarelto) 20 mg PO Q24H [facility] Last Admin: 03/16/18 20:53 Dose: 20 mg Sodium Chloride (Ns Flush) 2 ml IV.FLUSH PRN PRN PRN Reason: FLUSH AFTER USING IV ACCESS Last Admin: 03/15/18 09:47 Dose: 2 ml Tamsulosin HCl (Flomax) 0.4 mg PO DAILY [facility] Last Admin: 03/17/18 09:07 Dose: 0.4 mg Mental Status Assessment - Mental Status Orientation: oriented to: Self, Place, Time, Situation Mental Status: WFL: Thought processing, Language/interactions, Attention, Learning/memory, Problem-solving, Visuospatial/construction, Self-regulation, Other Absent: Hallucinations, Delusions Adjustment/Coping Assessment - Adjustment/Coping Adjustment/Coping: None: Awareness, Insight - Observation In terms of emotional functioning, the patient demonstrated normal adjustment. This patient demonstrated no signs of agitation, impulsivity or disinhibition, nor was there remarkable evidence of a formal thought disorder or psychosis. There was no evidence of depression or anxiety. Thought content was free from suicidal, homicidal or paranoid ideation, and thought processes were logical and goal-directed. The patients mood was euthymic, and his affect was stable and appropriate. The patient appears to possess adequate insight and awareness into their situation and within the limits of this brief evaluation, adequate judgment. - Goals/Team Members LTG Status: Deferred STG Status: Deferred Team Members: Neuropsychologist Behavior - Behavior Treatment Engagement: Average - Observation Behaviorally, the patient demonstrated no signs of agitation, impulsivity or disinhibition. There was no remarkable evidence of a formal thought disorder or psychosis. - Goals LTG Status: Deferred STG Status: Deferred - Team Members Team Members: Neuropsychologist Diagnosis/Discharge Plan - Diagnosis (1) Adjustment disorder with anxiety Status: Acute Maximizing Acute Care Outcome: At this point in the recovery process, the patient does have cognitive decision making capacity as the patient is able to understand a situation and its likely consequences, and he is able to manipulate information rationally. Cognitive capacity will be assessed throughout the recovery process. - Discharge Planning Anticipated Problems: Ongoing areas of concern will include behavioral impulsivity, lack of insight and judgment, which is expected to improve with time and treatment. Treatment Plan: This clinician will continue to follow with you throughout the course of this patients acute care treatment, and I will be available to meet with the patient s family/support system to facilitate their understanding and the ongoing care of their family member. The goals of neuropsychological intervention shall be both educational and supportive to the family/support system as is deemed clinically appropriate. Thank you for the opportunity to assist in this patients care. Tre Nichols, Ph.D., ABPP Board Certified in Clinical Neuropsychology [place] [employer] [place] Licensed Psychologist #[id number]
[2018-03-17 12:32] VITALS: BP 140/69; PULSE 56; RESP 20; TEMP 98.4; O2SAT 97
--- NOTE | 2018-03-17 13:48 | P.DS ---
Date of admission: 03/13/18 12:56 Primary care physician: Anamaria Guerra MD Attending physician on discharge: Mathew Nunez Anticipated date of discharge: 03/17/18 Brief History from admission: Patient is a 67-year-old male with known history of hypertension status post CVA with multiple infarcts last February 2018 which was deemed to be embolic. Patient had a workup done with a BUDDY that was negative. A loop recorder was done which patient states came out negative. At that time he was have having left lower extremity weakness. Patient was discharged then to [facility] rehab but was not happy there. 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 He was brought in by his because of frequent falling. Patient states that since has been having every time he let go of the walker this time to reach for something and fell. Patient denies any dizziness any nausea vomiting. No weakness no back pain or no radiculopathy. Patient was brought in by and admitted for further evaluation. Patient denies any fever chest pain shortness of breath no diarrhea no incontinence. Patient states good appetite compliant with medication. Quit smoking since February. Patient update on day of discharge: Follow-up on patient with CVA. Patient seen and examined. Patient states he feels well. He denies any headache, dizziness, lightheadedness, new weakness or vision changes. He denies any chest pain or shortness of breath. He denies any nausea, vomiting or abdominal pain. DS: Diagnosis - Discharge Diagnosis (1) CVA (cerebral vascular accident) Status: Acute (2) Weakness Status: Acute (3) Hypertension Status: Chronic (4) Unstable gait Status: Acute DS: Summary Hospital Course: Patient with a history of previous CVA in February of this year on Eliquis admitted with recurrent falls and right lower extremity weakness. Patient was seen in consultation by neurology. MRI of the head revealed small foci of restricted diffusion bilaterally within the james radiata characteristic of small deep white matter infarcts. Patient's Eliquis was changed to Xarelto per neurology recommendations who also advised strict blood pressure control. Patient was noted to have elevated blood pressure. He was seen in consultation by his technical publications writer Dr. Tong who started the patient on 81 mg aspirin and added hydrochlorothiazide. Patient was also seen in consultation by Dr. Breen in hematology who recommended warfarin as outpatient with Lovenox bridging. Patient improved clinically. He participated with PT and OT who recommended rehab. Patient was evaluated and accepted for transfer to [place] for comprehensive rehabilitation. Patient was cleared by all specialty services for transfer. - Time Spent with Patient Total time spent providing and/or coordinating discharge services: Greater than 30 minutes - Quality: VTE Deep Vein Thrombosis/Pulmonary Embolism Present on Admission: No Exam Vital signs: Vital Signs 03/16/18 16:00 03/16/18 20:00 03/17/18 00:00 Temperature 98.4 F 97.9 F 97.6 F Pulse Rate 61 61 57 L Respiratory Rate 20 18 20 Blood Pressure 141/76 H 131/75 146/68 H Pulse Oximetry 98 96 97 03/17/18 04:00 03/17/18 08:00 03/17/18 12:00 Temperature 98.2 F 98.3 F 98.4 F Pulse Rate 66 55 L 56 L Respiratory Rate 20 16 20 Blood Pressure 131/73 141/84 H 140/69 Pulse Oximetry 94 L 96 97 Intake & Output 03/16/18 03/17/18 03/17/18 18:59 06:59 18:59 Intake Total 720 / 720 Balance 720 / 720 Weight 97 kg 97 kg Intake: Oral 720 / 720 Other: # Voids 3 # Incontinent Voids 3 Date of Last Bowel Movement 03/16/18 03/16/18 03/16/18 Narrative: GENERAL: Well-developed well-nourished male patient, in no acute distress. Awake and alert. Appears comfortable sitting in bedside chair. SKIN: Warm and dry. No generalized rash. HEENT: Atraumatic. Normocephalic. Pupils equal and round. No scleral icterus. No injection or drainage. No nasal bleeding or discharge. Mucous membranes pink and moist. NECK: Trachea midline. CARDIOVASCULAR: Regular rate and rhythm. RESPIRATORY: No accessory muscle use. Clear to auscultation. Breath sounds equal bilaterally. GASTROINTESTINAL: Abdomen soft, non-tender, nondistended. +BS. +Ventral hernia. MUSCULOSKELETAL: Extremities without clubbing, cyanosis, or edema. No obvious deformities. NEUROLOGICAL: Awake and alert. No obvious cranial nerve deficits. Motor grossly within normal limits. Able to move all extremities spontaneously. Normal speech. PSYCHIATRIC: Appropriate mood and affect; insight and judgment appears normal. Results Procedures completed during hospitalization: None Labs on day of discharge: Labs from last 24 hours 03/17/18 03/16/18 07:12 09:58 Sodium 140 Potassium 3.7 Chloride 105 Carbon Dioxide 22.6 Anion Gap 12 BUN 25 H Creatinine 1.48 H Estimated GFR 47 L Random Glucose 102 Hemoglobin A1c 5.3 Calcium 9.2 - Impressions ITS Impressions Lumbar Spine MRI 03/13/18 00:00 CONCLUSION: 1. Multilevel degenerative changes of the lumbar spine as and not significantly changed from the study one month ago. 2. Mild left lateral recess narrowing at L3/L4 without evidence of transiting nerve root impingement. 3. Mild to moderate right lateral recess narrowing at L4/L5 and probably impinging on the transiting right L5 nerve root. 4. Multilevel foraminal stenosis, mild at L3/L4, mild to moderate at L4/L5 and [id number] right, moderate left L5/S1. 5. Persistent hydronephrosis/hydroureter of both kidneys partially seen. Urinary bladder also appears distended at the time of imaging. Thoracic Spine MRI 03/13/18 00:00 CONCLUSION: 1. Degenerative changes at C7/T1 with associated mild spinal stenosis and moderate bilateral foraminal stenosis. 2. Mild disc and uncovertebral and facet osteoarthritis from T1/T2 through T12/ L1. There is mild bilateral foraminal stenosis at T6/T7 and mild right foraminal stenosis at T5/T6. Focal marrow edema of the right pedicle of T6, most likely reactive. A nondisplaced and/or stress fracture could appear similar. Head CT 03/13/18 09:40 CONCLUSION: 1. Subacute lacunar infarct right basal ganglia 2. No evidence of acute infarct, hemorrhage, mass or edema. 3. Chronic white matter ischemic changes with central volume loss. . Head MRI 03/13/18 10:18 CONCLUSION: 1. Small foci of restricted diffusion bilaterally within the james radiata characteristic of small deep white matter infarcts. 2. No evidence of acute hemorrhage. 3. Mild chronic ischemic white matter disease with periventricular T2 hyperintensities. 4. No evidence of cerebral cortical infarct or hemorrhage. Discharge Plan - Discharge Disposition Patient Disposition: 61 [facility] Inpatient - Discharge Condition Condition: Stable - Discharge Order Discharge Orders: Discharge Order (Routine); Ordered 03/16/18 Ordered By: Vera Dill - Discharge Details Anticipated Discharge Date: 03/16/18 - Physicians Team Primary Care Provider: Anamaria Guerra Attending Provider: Mathew Nunez Other Providers: Allyn Donald MD ; Cedric Togn MD ; Kassidy Breen ; Tre Nichols, PhD
--- NOTE | 2018-03-17 13:49 | P.PNCA ---
Subjective Interval history: Pt doing well, no complaints, awaiting transfer to [facility] Medications and Allergies Active Medications: Active Medications Amlodipine Besylate (Norvasc) 10 mg PO DAILY [facility] Last Admin: 03/17/18 09:07 Dose: 10 mg Aspirin (Aspirin Chew) 81 mg PO DAILY [facility] Last Admin: 03/17/18 09:07 Dose: 81 mg Atorvastatin Calcium (Lipitor) 40 mg PO DAILY [facility] Last Admin: 03/15/18 13:07 Dose: Not Given Enalapril Maleate (Vasotec) 10 mg PO BID [facility] Last Admin: 03/17/18 09:08 Dose: 10 mg Finasteride (Proscar) 5 mg PO DAILY [facility] Last Admin: 03/17/18 09:08 Dose: 5 mg Hydralazine HCl (Apresoline) 75 mg PO TID [facility] Last Admin: 03/17/18 09:06 Dose: 75 mg Hydrochlorothiazide (Microzide) 12.5 mg PO DAILY [facility] Last Admin: 03/17/18 09:07 Dose: 12.5 mg Nebivolol (Bystolic) 10 mg PO DAILY [facility] Last Admin: 03/17/18 09:07 Dose: 10 mg Rivaroxaban (Xarelto) 20 mg PO Q24H [facility] Last Admin: 03/16/18 20:53 Dose: 20 mg Sodium Chloride (Ns Flush) 2 ml IV.FLUSH PRN PRN PRN Reason: FLUSH AFTER USING IV ACCESS Last Admin: 03/15/18 09:47 Dose: 2 ml Tamsulosin HCl (Flomax) 0.4 mg PO DAILY [facility] Last Admin: 03/17/18 09:07 Dose: 0.4 mg Allergies Allergy/AdvReac Type Severity Reaction Status Date / Time penicillin G Allergy Severe Hives Verified 02/15/18 22:43 Home Medications Medication Instructions Recorded Confirmed Type aripiprazole 5 mg PO DAILY 01/28/18 03/13/18 History duloxetine 60 mg PO DAILY 01/28/18 03/13/18 History fenofibrate nanocrystallized 48 mg PO DAILY 01/28/18 03/13/18 History finasteride 5 mg PO DAILY 01/28/18 03/13/18 History montelukast 10 mg PO QPM 01/28/18 03/13/18 History nebivolol [Bystolic] 10 mg PO DAILY 01/28/18 03/13/18 History omeprazole 20 mg PO DAILY 01/28/18 03/13/18 History ramipril 10 mg PO DAILY 01/28/18 03/13/18 History tamsulosin 0.4 mg PO DAILY 01/28/18 03/13/18 History Physical Exam Vital signs: Vital Signs 03/16/18 16:00 03/16/18 20:00 03/17/18 00:00 Temperature 98.4 F 97.9 F 97.6 F Pulse Rate 61 61 57 L Respiratory Rate 20 18 20 Blood Pressure 141/76 H 131/75 146/68 H Pulse Oximetry 98 96 97 03/17/18 04:00 03/17/18 08:00 03/17/18 12:00 Temperature 98.2 F 98.3 F 98.4 F Pulse Rate 66 55 L 56 L Respiratory Rate 20 16 20 Blood Pressure 131/73 141/84 H 140/69 Pulse Oximetry 94 L 96 97 Intake & Output 03/16/18 03/17/18 03/17/18 18:59 06:59 18:59 Intake Total 720 / 720 Balance 720 / 720 Weight 97 kg 97 kg Intake: Oral 720 / 720 Other: # Voids 3 # Incontinent Voids 3 Date of Last Bowel Movement 03/16/18 03/16/18 03/16/18 - Constitutional no acute distress, average body habitus - Routine HEENT Exam Head: Present: normocephalic, atraumatic Eye: Present: EOMI, PERRL, normal accommodation ENT: Present: mucous membranes moist - Routine Neck Exam Present: supple - Routine Respiratory Exam Present: CTA bilaterally - Routine Cardiovascular Exam Present: RRR - Routine Abdominal Exam Present: soft - Routine Skin Exam Present: intact - Routine Neurological Exam Present: alert, oriented X3 - Detailed Neurological Exam: Coma Scale Eye Opening: Spontaneous Verbal Response: Oriented Motor Response: Obey commands Redmon Coma Scale Total: 15 - Routine Psychiatric Exam Present: normal affect Results 03/13/18 09:45 03/17/18 07:12 Comprehensive Metabolic Panel 03/16/18 03/17/18 Range/Units 06:37 07:12 Sodium 140 140 (136-145) meq/L Potassium 3.8 3.7 (3.5-5.1) meq/L Chloride 104 105 (98-107) meq/L Carbon Dioxide 26.9 22.6 (21.0-32.0) meq/L BUN 20 H 25 H (7-18) mg/dL Creatinine 1.45 H 1.48 H (0.60-1.30) mg/dL Calcium 9.3 9.2 (8.5-10.1) mg/dL Intake and Output 03/16/18 03/17/18 03/17/18 22:59 06:59 14:59 Intake Total 720 / 720 Balance 720 / 720 Intake: Oral 720 / 720 Other: # Voids 3 # Incontinent Voids 3 Date of Last Bowel Movement 03/16/18 03/16/18 Weight 97 kg Assessment and Plan - Plan Assessment Recurrent MRI confirmed CVA while taking Eliquis. February 2018 BUDDY negative for thromboembolic source. Pending loop recorder interrogation. EKG negative for atrial fibrillation since admission. Hypertensive emergency Acute kidney injury Hypertriglyceridemia. LDL unmeasurable Tobacco use history Plan: Now on Xarelto and aspirin. Will plan to Add statin and will add Vascepa outpatient Blood pressure improved Hematology has been consulted. Hypercoagulable workup in progress. Pt is pending discharge to [facility], he is stable from a cardiac standpoint. Doing well. The patient was seen and evaluated by Dr. Tong who completed [id number] encounter and physical exam and participated in evaluation and management. Discussed Condition With: Dr. Tong, Patients daughter in law
[2018-03-18 17:52] LABS: Dil Russell Viper Venom Conf ( POSITIVE (NEGATIVE); Dil Russell Viper Venom Time M NOT CORRECTED (CORRECTED); Lupus Anticoagulant PTT Screen 45 seconds (< OR = 40)
[2018-03-18 19:09] LABS: Factor V Leiden Mutation Negative (Negative); Protein C Functional 128 % (70 - 150)
== END 2018-03-17 15:03 ==
LOC: NEPE 09:00 → NEDA 12:56 → N05 15:58
PROVIDERS: ADMIT Hospitalist; ATTEND Hospitalist